=== PATIENT | female | born 1950 | race African-American/Black ===

== ENCOUNTER 2017-07-11 11:52 | Inpatient (IN) | payer MEDICAID ==
[~2017-07-11] VITALS: Ht 161.3 cm; Wt 98.9 kg
[~2017-07-11 11:52] MED LIST: CALC667C4 PO; CLON0.2T PO; ENAL5TAB PO; FERR-63 PO; METO50TA5 PO; WARF6TAB22 PO
[2017-07-11] MEDS ORDERED: AZTREONAM 2 GM in DEXT 5% WATER 100 ML IV STA ×2 (12:36→14:13)
[2017-07-11] MEDS ORDERED: VANCOMYCIN 1,500 MG in DEXT 5% WATER 250 ML IV STA ×2 (12:36→14:13)
[2017-07-11] MEDS ORDERED: METRONIDAZOLE 500 MG PREMIX 100 ML IV ONE (12:45)
[2017-07-11 13:07] LABS: BASOPHILS % 0.5 % (0.0-2.0); EOSINOPHILS % 0.3 % (0.0-5.0); LYMPHOCYTES % 9.9 % (20.0-50.0); MEAN CORPUSCULAR HEMOGLOBIN 23.1 pg (28.0-32.0); MEAN CORPUSCULAR VOLUME 71.8 fL (81.0-99.0); MEAN PLATELET VOLUME 7.7 fl (7.4-10.4); MONOCYTES % 10.3 % (2.0-8.0); PLATELET 317 x1000/uL (130-400); RED CELL DISTRIBUTION WIDTH 14.4 % (11.6-14.6)
[2017-07-11 13:14] LABS: INR 1.1; PROTHROMBIN TIME 11.4 sec (9.4-11.6)
[2017-07-11] MEDS ORDERED: MORPHINE SULFATE 4 MG/ML CPJ (NOT FOR IM USE) IV ONE (13:15)
[2017-07-11] MEDS ORDERED: ONDANSETRON HCL 4MG/2ML VIAL IV ONE (13:15)
[2017-07-11 13:17] LABS: CARBON DIOXIDE 36 mEq/L (21-32); CHLORIDE 94 mEq/L (98-107)
[2017-07-11 18:12] VITALS: BP 140/57
[2017-07-11] MEDS ORDERED: CLONIDINE 0.1MG TABLET PO PRN (18:45)
[2017-07-11 19:30] VITALS: BP 143/83
[2017-07-11 20:00] VITALS: BP 143/53
[2017-07-11] MEDS ORDERED: ONDANSETRON HCL 4MG/2ML VIAL IV PRN (20:00)
[2017-07-11] MEDS ORDERED: DEXTROSE 50% WATER 50ML SYRINGE IV PRN (20:00)
[2017-07-11] MEDS: METOPROLOL TARTRATE 25MG TABLET PO SCH (20:47)
[2017-07-11] MEDS: BLOOD SUGAR DIAGNOSTIC STRIP TEST SCH (20:48)
[2017-07-11] MEDS: HEPARIN 5000 UNITS/ML VIAL SUBCUT SCH (20:48)
[2017-07-11] MEDS: HYDROCODONE/ACETAMINOPHEN 5/325MG TABLET PO PRN (20:49)
[2017-07-11] MEDS: INSULIN LISPRO 100 UNITS/ML SUBCUT SCH (21:00)
[2017-07-11] MEDS: OMEPRAZOLE 20MG CAPSULE EXTENDED RELEASE PO SCH (22:48)
[2017-07-12] VITALS: BP 121/67
[2017-07-12 01:02] LABS: CLARITY URINE CLEAR (CLEAR); COLOR URINE YELLOW (YELLOW); GLUCOSE URINE NEGATIVE (NEGATIVE); KETONES URINE NEGATIVE (NEGATIVE); LEUKOCYTE ESTERASE URINE NEGATIVE (NEGATIVE); NITRITE URINE NEGATIVE (NEGATIVE); OCCULT BLOOD URINE NEGATIVE (NEGATIVE); PH URINE >=9.0 (4.5-8.0); PROTEIN URINE 2+ (NEGATIVE); SPECIFIC GRAVITY URINE 1.011 (1.005-1.030); UROBILINOGEN URINE 0.2 E.U./dL (0.2-1.0)
[2017-07-12 04:00] VITALS: BP 141/84
[2017-07-12] MEDS: BLOOD SUGAR DIAGNOSTIC STRIP TEST SCH ×4 (06:21→22:17)
[2017-07-12 08:00] VITALS: BP 131/62
[2017-07-12] MEDS: INSULIN LISPRO 100 UNITS/ML SUBCUT SCH ×4 (08:10→22:19)
[2017-07-12 08:30] LABS: BASOPHILS % 0.6 % (0.0-2.0); EOSINOPHILS % 0.9 % (0.0-5.0); HEMATOCRIT. 26.6 % (36.0-48.0); HEMOGLOBIN. 8.4 g/dL (12.0-16.0); LYMPHOCYTES % 12.1 % (20.0-50.0); MEAN CORPUSCULAR HEMOGLOBIN 22.9 pg (28.0-32.0); MEAN CORPUSCULAR VOLUME 72.6 fL (81.0-99.0); MEAN PLATELET VOLUME 7.7 fl (7.4-10.4); MONOCYTES % 11.1 % (2.0-8.0); NEUTROPHILS % 75.3 % (40.0-76.0); PLATELET 277 x1000/uL (130-400); RED BLOOD CELL COUNT 3.66 mill/uL (4.2-5.4); RED CELL DISTRIBUTION WIDTH 14.5 % (11.6-14.6)
[2017-07-12 08:58] LABS: TROPONIN I 0.05 ng/mL (0.00-0.04)
[2017-07-12] MEDS: OMEPRAZOLE 20MG CAPSULE EXTENDED RELEASE PO SCH (09:39)
[2017-07-12] MEDS: METOPROLOL TARTRATE 25MG TABLET PO SCH ×2 (09:39→16:23)
[2017-07-12] MEDS: HEPARIN 5000 UNITS/ML VIAL SUBCUT SCH ×2 (09:40→21:00)
[2017-07-12 12:00] VITALS: BP 112/55
[2017-07-12] MEDS: HYDROCODONE/ACETAMINOPHEN 5/325MG TABLET PO PRN (13:08)
[2017-07-12 16:00] VITALS: BP 108/43
[2017-07-12] MEDS: AZTREONAM 500 MG in DEXTROSE 5% WATER 50 ML IV SCH (16:23)
[2017-07-12 20:00] VITALS: BP 152/84
[2017-07-13] VITALS: BP 147/64
[2017-07-13 04:00] VITALS: BP 143/92
[2017-07-13] MEDS: BLOOD SUGAR DIAGNOSTIC STRIP TEST SCH ×4 (07:19→21:26)
[2017-07-13] MEDS: INSULIN LISPRO 100 UNITS/ML SUBCUT SCH ×4 (07:41→21:00)
[2017-07-13 08:00] VITALS: BP 140/92
[2017-07-13] MEDS: HEPARIN 5000 UNITS/ML VIAL SUBCUT SCH ×2 (09:15→21:26)
[2017-07-13] MEDS: AZTREONAM 500 MG in DEXTROSE 5% WATER 50 ML IV SCH (09:15)
[2017-07-13] MEDS: METOPROLOL TARTRATE 25MG TABLET PO SCH ×2 (09:15→16:19)
[2017-07-13] MEDS: FAMOTIDINE 20MG TABLET PO SCH (09:15)
[2017-07-13 12:00] VITALS: BP 143/59
[2017-07-13] MEDS: ENALAPRIL 5MG TABLET PO SCH ×2 (12:23→21:24)
[2017-07-13 15:58] LABS: BASOPHILS % 0.6 % (0.0-2.0); EOSINOPHILS % 1.6 % (0.0-5.0); HEMATOCRIT. 26.6 % (36.0-48.0); HEMOGLOBIN. 8.5 g/dL (12.0-16.0); LYMPHOCYTES % 9.3 % (20.0-50.0); MEAN CORPUSCULAR HEMOGLOBIN 22.9 pg (28.0-32.0); MEAN CORPUSCULAR VOLUME 71.6 fL (81.0-99.0); MEAN PLATELET VOLUME 7.9 fl (7.4-10.4); MONOCYTES % 7.9 % (2.0-8.0); NEUTROPHILS % 80.6 % (40.0-76.0); PLATELET 293 x1000/uL (130-400); RED BLOOD CELL COUNT 3.72 mill/uL (4.2-5.4); RED CELL DISTRIBUTION WIDTH 14.5 % (11.6-14.6)
[2017-07-13 16:00] VITALS: BP 115/51
[2017-07-13] MEDS: HYDROCODONE/ACETAMINOPHEN 5/325MG TABLET PO PRN (16:20)
[2017-07-13] MEDS ORDERED: VANCOMYCIN 1250MG in DEXTROSE 5% WATER 250ML IV NR (18:00)
[2017-07-13 20:00] VITALS: BP 185/75
[2017-07-14] VITALS (7 sets, daily range): BP systolic 114–168; BP diastolic 47–79
[2017-07-14] MEDS: BLOOD SUGAR DIAGNOSTIC STRIP TEST SCH ×4 (05:50→20:45)
[2017-07-14] MEDS: ACETAMINOPHEN 325MG TABLET PO PRN ×2 (05:50→20:07)
[2017-07-14 06:08] LABS: BASOPHILS % 0.2 % (0.0-2.0); EOSINOPHILS % 1.9 % (0.0-5.0); HEMATOCRIT. 25.8 % (36.0-48.0); HEMOGLOBIN. 8.2 g/dL (12.0-16.0); LYMPHOCYTES % 9.1 % (20.0-50.0); MEAN CORPUSCULAR HEMOGLOBIN 22.6 pg (28.0-32.0); MEAN CORPUSCULAR VOLUME 71.6 fL (81.0-99.0); MEAN PLATELET VOLUME 7.7 fl (7.4-10.4); MONOCYTES % 8.9 % (2.0-8.0); NEUTROPHILS % 79.9 % (40.0-76.0); PLATELET 300 x1000/uL (130-400); RED BLOOD CELL COUNT 3.61 mill/uL (4.2-5.4); RED CELL DISTRIBUTION WIDTH 14.1 % (11.6-14.6)
[2017-07-14] MEDS: INSULIN LISPRO 100 UNITS/ML SUBCUT SCH ×4 (07:24→20:45)
[2017-07-14] MEDS: METOPROLOL TARTRATE 25MG TABLET PO SCH ×2 (09:00→17:50)
[2017-07-14] MEDS: ENALAPRIL 5MG TABLET PO SCH ×2 (09:00→20:06)
[2017-07-14] MEDS: FAMOTIDINE 20MG TABLET PO SCH (09:59)
[2017-07-14] MEDS: HEPARIN 5000 UNITS/ML VIAL SUBCUT SCH ×2 (10:00→20:47)
[2017-07-14 11:25] LABS: HEPATITIS B SURFACE ANTIGEN NEGATIVE
[2017-07-14] MEDS ORDERED: HEPARIN SODIUM 1,000 UNIT/1ML VIAL IV NR (12:00)
[2017-07-15 00:03] VITALS: BP 119/61
[2017-07-15 04:00] VITALS: BP 127/64
[2017-07-15] MEDS: ACETAMINOPHEN 325MG TABLET PO PRN ×2 (05:34→20:33)
[2017-07-15] MEDS: BLOOD SUGAR DIAGNOSTIC STRIP TEST SCH ×4 (05:59→20:47)
[2017-07-15] MEDS: INSULIN LISPRO 100 UNITS/ML SUBCUT SCH ×4 (07:46→20:47)
[2017-07-15 08:00] VITALS: BP 106/48
[2017-07-15] MEDS: METOPROLOL TARTRATE 25MG TABLET PO SCH ×2 (09:00→20:33)
[2017-07-15] MEDS: ENALAPRIL 5MG TABLET PO SCH ×2 (09:00→20:32)
[2017-07-15] MEDS: FAMOTIDINE 20MG TABLET PO SCH (09:05)
[2017-07-15] MEDS: HEPARIN 5000 UNITS/ML VIAL SUBCUT SCH ×2 (09:08→20:32)
[2017-07-15] MEDS: HYDROCODONE/ACETAMINOPHEN 5/325MG TABLET PO PRN (09:17)
[2017-07-15] MEDS ORDERED: VANCOMYCIN 1250MG in DEXTROSE 5% WATER 250ML IV NR (12:00)
[2017-07-15 20:00] VITALS: BP 168/78
[2017-07-16] VITALS (9 sets, daily range): BP systolic 65–130; BP diastolic 32–57
[2017-07-16] MEDS: BLOOD SUGAR DIAGNOSTIC STRIP TEST SCH ×4 (06:09→21:05)
[2017-07-16 07:03] LABS: HEMOGLOBIN. 7.4 g/dL (12.0-16.0); MEAN CORPUSCULAR HEMOGLOBIN 23.1 pg (28.0-32.0); MEAN CORPUSCULAR VOLUME 71.7 fL (81.0-99.0); PLATELET 236 x1000/uL (130-400); RED BLOOD CELL COUNT 3.21 mill/uL (4.2-5.4); RED CELL DISTRIBUTION WIDTH 14.4 % (11.6-14.6)
[2017-07-16] MEDS: INSULIN LISPRO 100 UNITS/ML SUBCUT SCH ×4 (08:10→21:00)
[2017-07-16] MEDS: HEPARIN 5000 UNITS/ML VIAL SUBCUT SCH (08:58)
[2017-07-16] MEDS ORDERED: LEVOFLOXACIN 250MG TABLET PO SCH (09:00)
[2017-07-16] MEDS: METOPROLOL TARTRATE 25MG TABLET PO SCH ×2 (09:00→21:00)
[2017-07-16] MEDS: ENALAPRIL 5MG TABLET PO SCH ×2 (09:00→21:00)
[2017-07-16] MEDS: FAMOTIDINE 20MG TABLET PO SCH (09:12)
[2017-07-16] MEDS ORDERED: LIDOCAINE HCL 1% 20ML VIAL (Pyxis) INJ ONE (09:36)
[2017-07-16] MEDS ORDERED: SODIUM BICARBONATE 4% (2.4MEQ) 5ML VIAL IV ONE (09:36)
[2017-07-16] MEDS ORDERED: LIDOCAINE HCL/PF 2% 20MG/ML 5 ML/VIAL ONE (12:21)
[2017-07-16] MEDS ORDERED: BUPIVACAINE HCL/PF 0.5% (5MG/ML) 10ML ONE (12:21)
[2017-07-16] MEDS ORDERED: BACITRACIN 50,000 UNITS/VIAL ONE ×2 (12:21→12:45)
[2017-07-16] MEDS ORDERED: GENTAMICIN SULF 40MG/ML 2ML VIAL ONE (12:21)
[2017-07-16] MEDS ORDERED: VANCOMYCIN HCL 500 MG/VIAL ONE ×2 (12:56→13:07)
[2017-07-16 16:11] LABS: PLATELET ESTIMATE NORMAL
[2017-07-16 16:44] LABS: INR 1.1; PARTIAL THROMBOPLASTIN TIME 49.8 sec (23.4-31.0); PROTHROMBIN TIME 11.9 sec (9.4-11.6)
[2017-07-16] MEDS ORDERED: SODIUM CHLORIDE 0.9% 10ML VIAL ONE (16:57)
[2017-07-16] MEDS ORDERED: IOHEXOL-350 100 ML BOTTLE ONE (16:57)
[2017-07-16] MEDS ORDERED: VANCOMYCIN 1250MG in DEXTROSE 5% WATER 250ML IV SCH (18:00)
[2017-07-16] MEDS ORDERED: HEPARIN SODIUM 1,000 UNIT/1ML VIAL IV SCH (18:00)
[2017-07-16] MEDS ORDERED: HETASTARCH/NORMAL SALINE 500 ML PLAST..BAG IV PRN (20:30)
[2017-07-16] MEDS ORDERED: HETASTARCH/NORMAL SALINE 250 ML IV PRN (20:45)
[2017-07-17] VITALS: BP 101/55
[2017-07-17 04:00] VITALS: BP 100/50
[2017-07-17 07:31] LABS: HEMATOCRIT. 26.6 % (36.0-48.0); HEMOGLOBIN. 8.3 g/dL (12.0-16.0); MEAN CORPUSCULAR VOLUME 73.7 fL (81.0-99.0); MEAN PLATELET VOLUME 7.9 fl (7.4-10.4); PLATELET 187 x1000/uL (130-400); RED BLOOD CELL COUNT 3.61 mill/uL (4.2-5.4); RED CELL DISTRIBUTION WIDTH 15.6 % (11.6-14.6)
[2017-07-17] MEDS: BLOOD SUGAR DIAGNOSTIC STRIP TEST SCH ×4 (07:40→22:00)
[2017-07-17 08:00] VITALS: BP 115/45
[2017-07-17] MEDS: INSULIN LISPRO 100 UNITS/ML SUBCUT SCH ×4 (08:10→22:00)
[2017-07-17] MEDS: ENALAPRIL 5MG TABLET PO SCH ×2 (08:38→21:00)
[2017-07-17] MEDS: METOPROLOL TARTRATE 25MG TABLET PO SCH ×2 (08:39→21:00)
[2017-07-17] MEDS: FAMOTIDINE 20MG TABLET PO SCH (08:39)
[2017-07-17] MEDS: ACETAMINOPHEN 325MG TABLET PO PRN (08:39)
[2017-07-17 11:59] VITALS: BP 90/32
[2017-07-17 16:00] VITALS: BP 110/48
[2017-07-17] MEDS: HYDROCODONE/ACETAMINOPHEN 5/325MG TABLET PO PRN (17:25)
[2017-07-17 18:15] LABS: FERRITIN 1139 ng/mL (10-291)
[2017-07-17 18:25] LABS: VITAMIN B12 SERUM 562 pg/mL (211-911)
[2017-07-17 18:26] LABS: HEPATITIS B SURFACE ANTIGEN NEGATIVE
[2017-07-17 18:54] LABS: HEPATITIS B CORE AB IGM NEGATIVE
[2017-07-17 18:56] LABS: HEPATITIS A AB IGM NEGATIVE (NEGATIVE)
[2017-07-17 20:00] VITALS: BP 103/58
[2017-07-17 20:09] LABS: PLATELET ESTIMATE NORMAL
[2017-07-18] VITALS (7 sets, daily range): BP systolic 110–145; BP diastolic 51–86
[2017-07-18] MEDS: HYDROCODONE/ACETAMINOPHEN 5/325MG TABLET PO PRN ×2 (03:27→20:40)
[2017-07-18] MEDS: BLOOD SUGAR DIAGNOSTIC STRIP TEST SCH ×4 (07:16→20:41)
[2017-07-18] MEDS: INSULIN LISPRO 100 UNITS/ML SUBCUT SCH ×4 (07:49→20:41)
[2017-07-18] MEDS: ENALAPRIL 5MG TABLET PO SCH ×2 (09:00→20:41)
[2017-07-18] MEDS: METOPROLOL TARTRATE 25MG TABLET PO SCH ×2 (09:00→20:39)
[2017-07-18] MEDS: FAMOTIDINE 20MG TABLET PO SCH (09:00)
[2017-07-18 10:35] LABS: BASOPHILS % 0.2 % (0.0-2.0); EOSINOPHILS % 4.2 % (0.0-5.0); HEMATOCRIT. 22.6 % (36.0-48.0); HEMOGLOBIN. 7.2 g/dL (12.0-16.0); LYMPHOCYTES % 9.4 % (20.0-50.0); MEAN CORPUSCULAR HEMOGLOBIN 23.5 pg (28.0-32.0); MEAN CORPUSCULAR VOLUME 73.2 fL (81.0-99.0); MEAN PLATELET VOLUME 7.5 fl (7.4-10.4); NEUTROPHILS % 78.2 % (40.0-76.0); PLATELET 187 x1000/uL (130-400); RED BLOOD CELL COUNT 3.08 mill/uL (4.2-5.4)
[2017-07-18] MEDS: CEFTRIAXONE 2 G in DEXTROSE 5% WATER 50 ML IV SCH (14:14)
[2017-07-18] MEDS ORDERED: VANCOMYCIN 1 G PREMIX 200 ML IV NR (18:00)
[2017-07-19] MEDS: FAMOTIDINE 20MG TABLET PO SCH (02:35)
[2017-07-19] MEDS: BLOOD SUGAR DIAGNOSTIC STRIP TEST SCH ×4 (06:20→21:17)
[2017-07-19 08:00] VITALS: BP 92/47
[2017-07-19] MEDS: INSULIN LISPRO 100 UNITS/ML SUBCUT SCH ×4 (08:10→21:00)
[2017-07-19] MEDS: ENALAPRIL 5MG TABLET PO SCH ×2 (09:00→21:00)
[2017-07-19] MEDS: METOPROLOL TARTRATE 25MG TABLET PO SCH ×2 (09:00→21:00)
[2017-07-19 12:00] VITALS: BP 94/45
[2017-07-19] MEDS: CEFTRIAXONE 2 G in DEXTROSE 5% WATER 50 ML IV SCH (13:37)
[2017-07-19] MEDS: HYDROCODONE/ACETAMINOPHEN 5/325MG TABLET PO PRN (15:50)
[2017-07-19 16:00] VITALS: BP 124/55
[2017-07-19 17:36] LABS: HEMATOCRIT. 30.4 % (36.0-48.0); HEMOGLOBIN. 9.7 g/dL (12.0-16.0); MEAN CORPUSCULAR HEMOGLOBIN 23.7 pg (28.0-32.0); MEAN CORPUSCULAR VOLUME 74.8 fL (81.0-99.0); MEAN PLATELET VOLUME 7.6 fl (7.4-10.4); PLATELET 210 x1000/uL (130-400); RED BLOOD CELL COUNT 4.07 mill/uL (4.2-5.4); RED CELL DISTRIBUTION WIDTH 17.2 % (11.6-14.6)
[2017-07-19 19:49] LABS: PLATELET ESTIMATE NORMAL
[2017-07-19 20:00] VITALS: BP 109/50
[2017-07-19 21:47] VITALS: BP 109/50
== END 2017-07-19 22:05 | disposition home or self-care (01) | DRG 710 ==
LOC: ER 11:53 → 7WST 15:01 → EDBEDREQSVC 15:15 → EDBEDREQ 15:15 → ENRESERV 15:39
PROVIDERS: ADMIT Internal Medicine; ATTEND Internal Medicine
PROC: 02HV33Z Insertion of Infusion Device into Superior Vena Cava, Percutaneous Approach (ICD-10-PCS; 2017-07-16)
PROC: B548ZZA Ultrasonography of Superior Vena Cava, Guidance (ICD-10-PCS; 2017-07-16)
PROC: 30233N1 Transfusion of Nonautologous Red Blood Cells into Peripheral Vein, Percutaneous Approach (ICD-10-PCS; 2017-07-16)
PROC: B5181ZA Fluoroscopy of Superior Vena Cava using Low Osmolar Contrast, Guidance (ICD-10-PCS; 2017-07-16)
PROC: 0QBM0ZZ Excision of Left Tarsal, Open Approach (ICD-10-PCS; principal; 2017-07-19)
PROC: 0HDNXZZ Extraction of Left Foot Skin, External Approach (ICD-10-PCS; 2017-07-19)
DX: A41.9 Sepsis, unspecified organism (principal); E43 Unspecified severe protein-calorie malnutrition; N17.9 Acute kidney failure, unspecified; L89.154 Pressure ulcer of sacral region, stage 4; L89.304 Pressure ulcer of unspecified buttock, stage 4; L89.894 Pressure ulcer of other site, stage 4; E11.52 Type 2 diabetes mellitus with diabetic peripheral angiopathy with gangrene; N18.6 End stage renal disease; E11.22 Type 2 diabetes mellitus with diabetic chronic kidney disease; I13.11 Hypertensive heart and chronic kidney disease without heart failure, with stage 5 chronic kidney disease, or end stage renal disease; E11.621 Type 2 diabetes mellitus with foot ulcer; E11.319 Type 2 diabetes mellitus with unspecified diabetic retinopathy without macular edema; E11.628 Type 2 diabetes mellitus with other skin complications; E66.9 Obesity, unspecified; D64.9 Anemia, unspecified; J44.9 Chronic obstructive pulmonary disease, unspecified; L97.429 Non-pressure chronic ulcer of left heel and midfoot with unspecified severity; L97.519 Non-pressure chronic ulcer of other part of right foot with unspecified severity; R65.20 Severe sepsis without septic shock; E11.622 Type 2 diabetes mellitus with other skin ulcer; E11.69 Type 2 diabetes mellitus with other specified complication; K57.90 Diverticulosis of intestine, part unspecified, without perforation or abscess without bleeding; L89.629 Pressure ulcer of left heel, unspecified stage; M85.80 Other specified disorders of bone density and structure, unspecified site; N39.0 Urinary tract infection, site not specified; M86.8X7 Other osteomyelitis, ankle and foot; Z59.0 Homelessness; Z99.2 Dependence on renal dialysis; Z88.0 Allergy status to penicillin; Z79.4 Long term (current) use of insulin; Z79.2 Long term (current) use of antibiotics; Z87.891 Personal history of nicotine dependence; Z89.511 Acquired absence of right leg below knee; Z89.611 Acquired absence of right leg above knee; Z79.899 Other long term (current) drug therapy; Z68.38 Body mass index [BMI] 38.0-38.9, adult
CPT/HCPCS: 36415; 36569; 71010; 73650; 73700; 73721; 75635; 76937; 77001; 80048; 80053; 80202; 81001; 82607; 82728; 82962; 83540; 83550; 83605; 83615; 84100; 84443; 84484; 85025; 85044; 85610; 85651; 85730; 86705; 86706; 86709; 86803; 86850; 86900; 86920; 87040; 87070; 87075; 87077; 87086; 87186; 87205; 87340; 88304; 93005; 93306; 93971; 96365; 96366; 96368; 96375; 97022; 97162; 99291; A4216; A4565; A6261; C1725; J0696; J1580; J1644; J2270; J2405; J3370; J3490; J7030; J7040; J7050; J7060; P9016; Q9967

== ENCOUNTER 2018-09-20 15:39 | Inpatient (IN) | payer MEDICAID ==
[~2018-09-20] VITALS: Ht 160 cm; Wt 83.0 kg
[~2018-09-20 15:39] MED LIST changes: +METO-539 PO; -METO50TA5 PO
[2018-09-20] MEDS ORDERED: ALBUTEROL (0.083%) 2.5MG/3ML NEB HHN STA (20:16)
[2018-09-20] MEDS ORDERED: METHYLPREDNISOLONE SOD SUCC 125 MG/2 ML VIAL IV STA (20:16)
[2018-09-20 20:59] LABS: BASOPHILS % 0.9 % (0.0-2.0); EOSINOPHILS % 3.8 % (0.0-5.0); HEMATOCRIT. 23.9 % (36.0-48.0); HEMOGLOBIN. 7.7 g/dL (12.0-16.0); LYMPHOCYTES % 42.6 % (20.0-50.0); MEAN CORPUSCULAR HEMOGLOBIN 23.3 pg (28.0-32.0); MEAN CORPUSCULAR VOLUME 72.5 fL (81.0-99.0); MEAN PLATELET VOLUME 7.7 fl (7.4-10.4); NEUTROPHILS % 41.7 % (40.0-76.0); PLATELET 203 x1000/uL (130-400); RED CELL DISTRIBUTION WIDTH 19.7 % (11.6-14.6)
[2018-09-20 21:21] LABS: CHLORIDE 101 mEq/L (98-107)
[2018-09-21 09:00] VITALS: BP 187/74
[2018-09-21] MEDS ORDERED: CLONIDINE 0.1MG TABLET PO PRN (09:15)
[2018-09-21] MEDS ORDERED: HYDROCODONE/ACETAMINOPHEN 10/325MG TABLET PO PRN (09:15)
[2018-09-21] MEDS ORDERED: ACETAMINOPHEN 650MG/20.3ML UDC GT PRN (09:15)
[2018-09-21] MEDS ORDERED: GUAIFENESIN 200MG/10ML SUGAR FREE UDC PO PRN (09:15)
[2018-09-21] MEDS ORDERED: DIPHENHYDRAMINE 50MG/ML VIAL IV PRN (09:15)
[2018-09-21] MEDS ORDERED: DEXTROSE 50% WATER 50ML SYRINGE IV PRN (09:15)
[2018-09-21] MEDS ORDERED: DOCUSATE SODIUM 100MG CAPSULE PO PRN (09:15)
[2018-09-21] MEDS ORDERED: ONDANSETRON HCL 4MG/2ML INJ IV PRN (09:15)
[2018-09-21] MEDS ORDERED: IPRATROPIUM/ALBUTEROL 0.5-3(2.5)MG/3ML NEB INH PRN (09:15)
[2018-09-21] MEDS ORDERED: ACETAMINOPHEN 650MG SUPP PR PRN (09:15)
[2018-09-21] MEDS ORDERED: ENOXAPARIN 40MG/0.4ML SYR SUBCUT SCH (09:30)
[2018-09-21 12:00] VITALS: BP 187/71
[2018-09-21] MEDS: BLOOD SUGAR DIAGNOSTIC STRIP TEST SCH ×3 (12:40→21:00)
[2018-09-21 13:09] LABS: BASOPHILS % 0.2 % (0.0-2.0); HEMATOCRIT. 25.8 % (36.0-48.0); HEMOGLOBIN. 8.2 g/dL (12.0-16.0); LYMPHOCYTES % 30.6 % (20.0-50.0); MEAN CORPUSCULAR HEMOGLOBIN 23.2 pg (28.0-32.0); MEAN CORPUSCULAR VOLUME 72.7 fL (81.0-99.0); MEAN PLATELET VOLUME 8.1 fl (7.4-10.4); MONOCYTES % 5.3 % (2.0-8.0); NEUTROPHILS % 63.9 % (40.0-76.0); PLATELET 218 x1000/uL (130-400); RED BLOOD CELL COUNT 3.54 mill/uL (4.2-5.4); RED CELL DISTRIBUTION WIDTH 20.1 % (11.6-14.6)
[2018-09-21] MEDS: INSULIN LISPRO 100 UNITS/ML SUBCUT SCH ×3 (13:35→22:12)
[2018-09-21] MEDS: HYDROCODONE/ACETAMINOPHEN 5/325MG TABLET PO PRN (13:36)
[2018-09-21] MEDS: SODIUM CHLORIDE 0.9% INJ 3ML FLUSH IVF SCH (13:39)
[2018-09-21 14:07] LABS: CHLORIDE 100 mEq/L (98-107)
[2018-09-21 16:00] VITALS: BP 158/53
[2018-09-21 18:44] LABS: CREATINE KINASE 38 IU/L (26-192)
[2018-09-21 18:45] LABS: CREATINE KINASE MB FRACTION < 1.0 ng/mL (0.5-3.6)
[2018-09-21 20:00] VITALS: BP 142/59
[2018-09-21 20:50] LABS: CLARITY URINE CLOUDY (CLEAR); COLOR URINE YELLOW (YELLOW); KETONES URINE NEGATIVE (NEGATIVE); LEUKOCYTE ESTERASE URINE 2+ (NEGATIVE); NITRITE URINE NEGATIVE (NEGATIVE); OCCULT BLOOD URINE 1+ (NEGATIVE); PH URINE >=9.0 (4.5-8.0); PROTEIN URINE 3+ (NEGATIVE); UROBILINOGEN URINE 0.2 E.U./dL (0.2-1.0)
[2018-09-21 21:01] LABS: *AMPHETAMINES SCREEN URINE NEGATIVE (NEGATIVE); *BARBITURATES SCREEN URINE NEGATIVE (NEGATIVE); *BENZODIAZEPINES SCREEN URINE NEGATIVE (NEGATIVE); *COCAINE SCREEN URINE NEGATIVE (NEGATIVE)
[2018-09-21 21:02] LABS: CANNABINOID URINE SCREEN NEGATIVE (NEGATIVE); METHADONE URINE SCREEN NEGATIVE (NEGATIVE); OPIATES URINE SCREEN NEGATIVE (NEGATIVE); PHENCYCLIDINE URINE SCREEN NEGATIVE (NEGATIVE)
[2018-09-22] VITALS (8 sets, daily range): BP systolic 118–146; BP diastolic 43–68
[2018-09-22] MEDS: HYDROCODONE/ACETAMINOPHEN 5/325MG TABLET PO PRN (00:41)
[2018-09-22] MEDS: SODIUM CHLORIDE 0.9% INJ 3ML FLUSH IVF SCH (00:44)
[2018-09-22] MEDS: BLOOD SUGAR DIAGNOSTIC STRIP TEST SCH ×4 (07:40→21:00)
[2018-09-22] MEDS: INSULIN LISPRO 100 UNITS/ML SUBCUT SCH ×4 (08:10→21:00)
[2018-09-22 10:01] LABS: BASOPHILS % 0.2 % (0.0-2.0); EOSINOPHILS % 1.9 % (0.0-5.0); LYMPHOCYTES % 39.2 % (20.0-50.0); MEAN CORPUSCULAR HEMOGLOBIN 23.1 pg (28.0-32.0); MEAN CORPUSCULAR VOLUME 72.6 fL (81.0-99.0); MEAN PLATELET VOLUME 7.8 fl (7.4-10.4); MONOCYTES % 8.1 % (2.0-8.0); NEUTROPHILS % 50.6 % (40.0-76.0); PLATELET 195 x1000/uL (130-400); RED BLOOD CELL COUNT 2.89 mill/uL (4.2-5.4); RED CELL DISTRIBUTION WIDTH 20.1 % (11.6-14.6)
[2018-09-22 10:06] LABS: HEMOGLOBIN. 6.7 g/dL (12.0-16.0)
[2018-09-22 10:42] LABS: CHLORIDE 100 mEq/L (98-107)
[2018-09-22 11:09] LABS: CREATINE KINASE 30 IU/L (26-192); LDL CHOLESTEROL 50 mg/dL (5-100)
[2018-09-22 11:10] LABS: HDL CHOLESTEROL 45 mg/dL (40-59)
[2018-09-22 11:14] LABS: CREATINE KINASE MB FRACTION < 1.0 ng/mL (0.5-3.6)
[2018-09-22] MEDS: ASPIRIN 81MG EC TABLET PO SCH (14:03)
[2018-09-22] MEDS: ATORVASTATIN CALCIUM 20MG TABLET PO SCH (21:17)
[2018-09-23] VITALS (7 sets, daily range): BP systolic 116–141; BP diastolic 44–54
[2018-09-23] MEDS: SODIUM CHLORIDE 0.9% INJ 3ML FLUSH IVF SCH ×4 (06:51→20:42)
[2018-09-23] MEDS: BLOOD SUGAR DIAGNOSTIC STRIP TEST SCH ×4 (06:52→20:42)
[2018-09-23] MEDS: INSULIN LISPRO 100 UNITS/ML SUBCUT SCH ×4 (08:10→20:45)
[2018-09-23] MEDS: ASPIRIN 81MG EC TABLET PO SCH (08:44)
[2018-09-23] MEDS ORDERED: MAGNESIUM HYDROXIDE 400MG/5ML 30ML UDC PO NR (15:00)
[2018-09-23] MEDS: ATORVASTATIN CALCIUM 20MG TABLET PO SCH (20:41)
[2018-09-23 22:53] LABS: BASOPHILS % 0.5 % (0.0-2.0); EOSINOPHILS % 2.9 % (0.0-5.0); HEMATOCRIT. 26.5 % (36.0-48.0); HEMOGLOBIN. 8.4 g/dL (12.0-16.0); LYMPHOCYTES % 33.7 % (20.0-50.0); MEAN CORPUSCULAR HEMOGLOBIN 23.7 pg (28.0-32.0); MEAN CORPUSCULAR VOLUME 74.3 fL (81.0-99.0); MEAN PLATELET VOLUME 7.7 fl (7.4-10.4); MONOCYTES % 9.8 % (2.0-8.0); NEUTROPHILS % 53.1 % (40.0-76.0); PLATELET 214 x1000/uL (130-400); RED BLOOD CELL COUNT 3.56 mill/uL (4.2-5.4); RED CELL DISTRIBUTION WIDTH 20.1 % (11.6-14.6)
[2018-09-23 23:00] LABS: CHLORIDE 104 mEq/L (98-107)
[2018-09-23] MEDS: HYDROCODONE/ACETAMINOPHEN 5/325MG TABLET PO PRN (23:30)
[2018-09-24 04:00] VITALS: BP 165/80
[2018-09-24] MEDS: SODIUM CHLORIDE 0.9% INJ 3ML FLUSH IVF SCH ×3 (05:20→21:06)
[2018-09-24] MEDS: BLOOD SUGAR DIAGNOSTIC STRIP TEST SCH ×4 (07:40→21:03)
[2018-09-24 08:00] VITALS: BP 169/83
[2018-09-24] MEDS: INSULIN LISPRO 100 UNITS/ML SUBCUT SCH ×4 (08:10→21:00)
[2018-09-24] MEDS ORDERED: ATOR20TA PO (10:40)
[2018-09-24] MEDS ORDERED: AMLO2.5T45 PO (10:40)
[2018-09-24] MEDS ORDERED: ASPI-1158 PO (10:40)
[2018-09-24 11:49] LABS: BASOPHILS % 0.5 % (0.0-2.0); HEMATOCRIT. 24.6 % (36.0-48.0); HEMOGLOBIN. 7.9 g/dL (12.0-16.0); LYMPHOCYTES % 38.5 % (20.0-50.0); MEAN CORPUSCULAR HEMOGLOBIN 23.9 pg (28.0-32.0); MEAN CORPUSCULAR VOLUME 74.1 fL (81.0-99.0); MEAN PLATELET VOLUME 8.6 fl (7.4-10.4); PLATELET 198 x1000/uL (130-400); RED BLOOD CELL COUNT 3.32 mill/uL (4.2-5.4); RED CELL DISTRIBUTION WIDTH 20.4 % (11.6-14.6)
[2018-09-24 12:00] VITALS: BP 111/63
[2018-09-24] MEDS: ASPIRIN 81MG EC TABLET PO SCH (12:19)
[2018-09-24] MEDS: ACETAMINOPHEN 325MG TABLET PO PRN (12:20)
[2018-09-24 16:00] VITALS: BP 138/53
[2018-09-24 20:00] VITALS: BP 125/58
[2018-09-24] MEDS: MAGNESIUM HYDROXIDE 400MG/5ML 30ML UDC PO PRN (20:59)
[2018-09-24] MEDS: ATORVASTATIN CALCIUM 20MG TABLET PO SCH (21:03)
[2018-09-24] MEDS: AMLODIPINE 2.5MG TABLET PO SCH (21:03)
[2018-09-25] VITALS: BP 130/51
[2018-09-25 00:21] LABS: HEMATOCRIT 26.6 % (36.0-48.0); HEMOGLOBIN 8.5 g/dL (12.0-16.0)
[2018-09-25 00:27] LABS: PROTHROMBIN TIME 10.3 sec (9.1-11.1)
[2018-09-25 04:00] VITALS: BP 140/62
[2018-09-25] MEDS: INSULIN LISPRO 100 UNITS/ML SUBCUT SCH ×4 (06:26→21:00)
[2018-09-25] MEDS: SODIUM CHLORIDE 0.9% INJ 3ML FLUSH IVF SCH ×3 (06:26→21:25)
[2018-09-25] MEDS: BLOOD SUGAR DIAGNOSTIC STRIP TEST SCH ×4 (06:26→21:26)
[2018-09-25 08:00] VITALS: BP 170/72
[2018-09-25] MEDS: ASPIRIN 81MG EC TABLET PO SCH (08:11)
[2018-09-25] MEDS: AMLODIPINE 2.5MG TABLET PO SCH ×2 (08:11→21:26)
[2018-09-25 12:00] VITALS: BP 128/56
[2018-09-25 16:00] VITALS: BP 135/61
[2018-09-25 18:04] LABS: BASOPHILS % 0.4 % (0.0-2.0); HEMATOCRIT. 25.8 % (36.0-48.0); HEMOGLOBIN. 8.4 g/dL (12.0-16.0); LYMPHOCYTES % 34.7 % (20.0-50.0); MEAN CORPUSCULAR HEMOGLOBIN 24.3 pg (28.0-32.0); MEAN CORPUSCULAR VOLUME 74.5 fL (81.0-99.0); MEAN PLATELET VOLUME 8.5 fl (7.4-10.4); MONOCYTES % 10.2 % (2.0-8.0); NEUTROPHILS % 50.7 % (40.0-76.0); PLATELET 194 x1000/uL (130-400); RED BLOOD CELL COUNT 3.46 mill/uL (4.2-5.4); RED CELL DISTRIBUTION WIDTH 20.5 % (11.6-14.6)
[2018-09-25 20:00] VITALS: BP 145/64
[2018-09-25] MEDS: ATORVASTATIN CALCIUM 20MG TABLET PO SCH (21:25)
[2018-09-26] VITALS: BP 148/47
[2018-09-26] MEDS: HYDROCODONE/ACETAMINOPHEN 5/325MG TABLET PO PRN (05:28)
[2018-09-26] MEDS: MAGNESIUM HYDROXIDE 400MG/5ML 30ML UDC PO PRN (05:28)
[2018-09-26] MEDS: SODIUM CHLORIDE 0.9% INJ 3ML FLUSH IVF SCH ×3 (05:35→21:58)
[2018-09-26] MEDS: INSULIN LISPRO 100 UNITS/ML SUBCUT SCH ×4 (05:39→21:00)
[2018-09-26] MEDS: BLOOD SUGAR DIAGNOSTIC STRIP TEST SCH ×4 (05:39→21:00)
[2018-09-26 08:00] VITALS: BP 154/59
[2018-09-26] MEDS: AMLODIPINE 2.5MG TABLET PO SCH ×2 (09:08→21:00)
[2018-09-26] MEDS: ASPIRIN 81MG EC TABLET PO SCH (09:08)
[2018-09-26 12:00] VITALS: BP 149/61
[2018-09-26 16:00] VITALS: BP 129/66
[2018-09-26 20:00] VITALS: BP 167/64
[2018-09-26] MEDS: ATORVASTATIN CALCIUM 20MG TABLET PO SCH (21:00)
[2018-09-26] MEDS ORDERED: HEPARIN SODIUM 1,000 UNIT/1ML VIAL IV NR (23:22)
[2018-09-26 23:51] LABS: BASOPHILS % 0.6 % (0.0-2.0); EOSINOPHILS % 4.4 % (0.0-5.0); HEMATOCRIT. 30.5 % (36.0-48.0); HEMOGLOBIN. 9.7 g/dL (12.0-16.0); LYMPHOCYTES % 34.5 % (20.0-50.0); MEAN CORPUSCULAR HEMOGLOBIN 23.6 pg (28.0-32.0); MEAN CORPUSCULAR VOLUME 74.5 fL (81.0-99.0); MEAN PLATELET VOLUME 8.2 fl (7.4-10.4); NEUTROPHILS % 52.5 % (40.0-76.0); PLATELET 181 x1000/uL (130-400); RED BLOOD CELL COUNT 4.09 mill/uL (4.2-5.4); RED CELL DISTRIBUTION WIDTH 20.5 % (11.6-14.6)
[2018-09-27] VITALS: BP 119/48
[2018-09-27] MEDS ORDERED: HYDROCODONE/ACETAMINOPHEN 5/325MG TABLET PO PRN (01:45)
[2018-09-27] MEDS ORDERED: HYDROCODONE/ACETAMINOPHEN 10/325MG TABLET PO PRN (01:45)
[2018-09-27] MEDS: SODIUM CHLORIDE 0.9% INJ 3ML FLUSH IVF SCH ×3 (06:00→21:14)
[2018-09-27] MEDS: BLOOD SUGAR DIAGNOSTIC STRIP TEST SCH ×4 (06:41→21:12)
[2018-09-27 08:00] VITALS: BP 103/49
[2018-09-27] MEDS: INSULIN LISPRO 100 UNITS/ML SUBCUT SCH ×4 (08:10→21:00)
[2018-09-27] MEDS: AMLODIPINE 2.5MG TABLET PO SCH ×2 (09:00→21:13)
[2018-09-27] MEDS: ASPIRIN 81MG EC TABLET PO SCH (09:55)
[2018-09-27 09:56] LABS: BASOPHILS % 0.6 % (0.0-2.0); EOSINOPHILS % 4.1 % (0.0-5.0); HEMATOCRIT. 26.4 % (36.0-48.0); HEMOGLOBIN. 8.4 g/dL (12.0-16.0); MEAN CORPUSCULAR HEMOGLOBIN 23.7 pg (28.0-32.0); MEAN CORPUSCULAR VOLUME 74.6 fL (81.0-99.0); MEAN PLATELET VOLUME 7.7 fl (7.4-10.4); MONOCYTES % 9.9 % (2.0-8.0); NEUTROPHILS % 50.4 % (40.0-76.0); PLATELET 194 x1000/uL (130-400); RED BLOOD CELL COUNT 3.54 mill/uL (4.2-5.4); RED CELL DISTRIBUTION WIDTH 20.7 % (11.6-14.6)
[2018-09-27 10:25] LABS: CHLORIDE 106 mEq/L (98-107)
[2018-09-27 12:00] VITALS: BP 185/64
[2018-09-27 16:00] VITALS: BP 120/42
[2018-09-27] MEDS: ACETAMINOPHEN 325MG TABLET PO PRN (21:13)
[2018-09-27] MEDS: ATORVASTATIN CALCIUM 20MG TABLET PO SCH (21:13)
[2018-09-28] VITALS: BP 135/52
[2018-09-28 04:00] VITALS: BP 129/61
[2018-09-28] MEDS: SODIUM CHLORIDE 0.9% INJ 3ML FLUSH IVF SCH ×3 (05:43→22:00)
[2018-09-28] MEDS: BLOOD SUGAR DIAGNOSTIC STRIP TEST SCH ×4 (06:46→21:00)
[2018-09-28 08:00] VITALS: BP 124/67
[2018-09-28] MEDS: INSULIN LISPRO 100 UNITS/ML SUBCUT SCH ×4 (08:10→21:00)
[2018-09-28] MEDS: AMLODIPINE 2.5MG TABLET PO SCH ×2 (09:00→21:50)
[2018-09-28] MEDS: ASPIRIN 81MG EC TABLET PO SCH (09:00)
[2018-09-28 12:00] VITALS: BP 131/48
[2018-09-28 16:00] VITALS: BP 173/64
[2018-09-28 16:43] LABS: BASOPHILS % 0.4 % (0.0-2.0); EOSINOPHILS % 5.3 % (0.0-5.0); HEMATOCRIT. 26.2 % (36.0-48.0); HEMOGLOBIN. 8.3 g/dL (12.0-16.0); LYMPHOCYTES % 37.2 % (20.0-50.0); MEAN CORPUSCULAR HEMOGLOBIN 23.6 pg (28.0-32.0); MEAN CORPUSCULAR VOLUME 74.2 fL (81.0-99.0); MEAN PLATELET VOLUME 8.1 fl (7.4-10.4); MONOCYTES % 10.8 % (2.0-8.0); NEUTROPHILS % 46.3 % (40.0-76.0); PLATELET 214 x1000/uL (130-400); RED BLOOD CELL COUNT 3.53 mill/uL (4.2-5.4); RED CELL DISTRIBUTION WIDTH 20.8 % (11.6-14.6)
[2018-09-28 20:00] VITALS: BP 135/53
[2018-09-28] MEDS: ATORVASTATIN CALCIUM 20MG TABLET PO SCH (21:50)
[2018-09-29] VITALS: BP 125/48
[2018-09-29] MEDS: MAGNESIUM HYDROXIDE 400MG/5ML 30ML UDC PO PRN (02:23)
[2018-09-29] MEDS: SODIUM CHLORIDE 0.9% INJ 3ML FLUSH IVF SCH ×3 (05:53→21:25)
[2018-09-29] MEDS: BLOOD SUGAR DIAGNOSTIC STRIP TEST SCH ×4 (06:27→21:25)
[2018-09-29 08:00] VITALS: BP 129/79
[2018-09-29] MEDS: INSULIN LISPRO 100 UNITS/ML SUBCUT SCH ×4 (08:10→21:26)
[2018-09-29] MEDS: ASPIRIN 81MG EC TABLET PO SCH (09:22)
[2018-09-29] MEDS: AMLODIPINE 2.5MG TABLET PO SCH ×2 (09:22→21:25)
[2018-09-29 12:00] VITALS: BP 141/78
[2018-09-29 16:00] VITALS: BP 145/77
[2018-09-29 20:00] VITALS: BP 148/57
[2018-09-29] MEDS ORDERED: EPOETIN ALFA 10000UNITS/ML VIAL SUBCUT SCH (21:00)
[2018-09-29] MEDS: ATORVASTATIN CALCIUM 20MG TABLET PO SCH (21:25)
[2018-09-30 04:00] VITALS: BP 117/51
[2018-09-30] MEDS: SODIUM CHLORIDE 0.9% INJ 3ML FLUSH IVF SCH ×3 (06:00→22:00)
[2018-09-30] MEDS: BLOOD SUGAR DIAGNOSTIC STRIP TEST SCH ×4 (06:44→21:40)
[2018-09-30 08:00] VITALS: BP 117/75
[2018-09-30] MEDS: INSULIN LISPRO 100 UNITS/ML SUBCUT SCH ×4 (08:10→21:00)
[2018-09-30] MEDS: ASPIRIN 81MG EC TABLET PO SCH (08:40)
[2018-09-30] MEDS: AMLODIPINE 2.5MG TABLET PO SCH ×2 (08:41→22:10)
[2018-09-30 12:00] VITALS: BP 99/37
[2018-09-30 15:43] LABS: BASOPHILS % 0.8 % (0.0-2.0); EOSINOPHILS % 3.3 % (0.0-5.0); HEMATOCRIT. 25.3 % (36.0-48.0); HEMOGLOBIN. 8.2 g/dL (12.0-16.0); LYMPHOCYTES % 33.9 % (20.0-50.0); MEAN CORPUSCULAR VOLUME 74.4 fL (81.0-99.0); MEAN PLATELET VOLUME 8.5 fl (7.4-10.4); MONOCYTES % 9.9 % (2.0-8.0); NEUTROPHILS % 52.1 % (40.0-76.0); PLATELET 195 x1000/uL (130-400); RED BLOOD CELL COUNT 3.41 mill/uL (4.2-5.4); RED CELL DISTRIBUTION WIDTH 20.9 % (11.6-14.6)
[2018-09-30 16:00] VITALS: BP 140/80
[2018-09-30 20:00] VITALS: BP 121/54
[2018-09-30] MEDS: ATORVASTATIN CALCIUM 20MG TABLET PO SCH (22:10)
[2018-10-01] VITALS: BP 98/34
[2018-10-01] MEDS: BLOOD SUGAR DIAGNOSTIC STRIP TEST SCH (05:39)
[2018-10-01] MEDS: SODIUM CHLORIDE 0.9% INJ 3ML FLUSH IVF SCH (05:39)
[2018-10-01 08:00] VITALS: BP 118/59
[2018-10-01] MEDS: INSULIN LISPRO 100 UNITS/ML SUBCUT SCH (08:10)
[2018-10-01] MEDS: ASPIRIN 81MG EC TABLET PO SCH (09:56)
[2018-10-01] MEDS: AMLODIPINE 2.5MG TABLET PO SCH (09:56)
[2018-10-01 11:22] VITALS: BP 118/59
[2018-10-01 12:00] VITALS: BP 129/55
[2018-10-16] MEDS ORDERED: ENAL5TAB PO (15:27)
[2018-10-16] MEDS ORDERED: METO-539 PO (15:27)
== END 2018-10-01 15:17 | DRG 194 ==
LOC: ER 15:39 → 7WST 22:09 → EDBEDREQTM 22:13 → EDBEDREQ 22:13 → CANRESERV 09-21 00:57 → ENRESERV 09-21 00:57 → EDBEDREQ 09-21 05:09 → EDBEDREQTM 09-21 05:09 → EDBEDREQDT 09-21 05:09 → ENRESERV 09-21 07:11
PROVIDERS: ADMIT Family Medicine; ATTEND Family Medicine
PROC: 30233N1 Transfusion of Nonautologous Red Blood Cells into Peripheral Vein, Percutaneous Approach (ICD-10-PCS; principal; 2018-09-22)
PROC: 5A1D70Z Performance of Urinary Filtration, Intermittent, Less than 6 Hours Per Day (ICD-10-PCS; 2018-09-22)
PROC: 5A1D70Z Performance of Urinary Filtration, Intermittent, Less than 6 Hours Per Day (ICD-10-PCS; 2018-09-24)
PROC: 5A1D70Z Performance of Urinary Filtration, Intermittent, Less than 6 Hours Per Day (ICD-10-PCS; 2018-09-26)
PROC: 5A1D70Z Performance of Urinary Filtration, Intermittent, Less than 6 Hours Per Day (ICD-10-PCS; 2018-09-28)
DX: I13.2 Hypertensive heart and chronic kidney disease with heart failure and with stage 5 chronic kidney disease, or end stage renal disease (principal); E43 Unspecified severe protein-calorie malnutrition; I95.9 Hypotension, unspecified; E11.22 Type 2 diabetes mellitus with diabetic chronic kidney disease; E11.40 Type 2 diabetes mellitus with diabetic neuropathy, unspecified; E11.51 Type 2 diabetes mellitus with diabetic peripheral angiopathy without gangrene; E11.621 Type 2 diabetes mellitus with foot ulcer; I48.91 Unspecified atrial fibrillation; E11.319 Type 2 diabetes mellitus with unspecified diabetic retinopathy without macular edema; R07.89 Other chest pain; N18.6 End stage renal disease; L97.509 Non-pressure chronic ulcer of other part of unspecified foot with unspecified severity; Z99.2 Dependence on renal dialysis; Z99.81 Dependence on supplemental oxygen; J44.9 Chronic obstructive pulmonary disease, unspecified; I50.33 Acute on chronic diastolic (congestive) heart failure; E66.9 Obesity, unspecified; K21.9 Gastro-esophageal reflux disease without esophagitis; H54.8 Legal blindness, as defined in USA; D63.8 Anemia in other chronic diseases classified elsewhere; F17.210 Nicotine dependence, cigarettes, uncomplicated; Z79.4 Long term (current) use of insulin; Z88.0 Allergy status to penicillin; Z89.511 Acquired absence of right leg below knee; Z89.611 Acquired absence of right leg above knee; Z79.899 Other long term (current) drug therapy; Z68.32 Body mass index [BMI] 32.0-32.9, adult; Z91.19 Patient's noncompliance with other medical treatment and regimen
CPT/HCPCS: 36415; 71045; 80048; 80051; 80061; 80305; 82550; 82553; 82962; 83735; 83880; 84443; 84484; 85014; 85018; 86850; 86900; 86920; 93005; 94640; 96374; 99285; A6261; J0885; J1644; J1815; J2930; J7050; J7611; J7620; P9016

== ENCOUNTER 2018-10-22 16:08 | Inpatient (IN) | payer MEDICAID ==
[~2018-10-22] VITALS: Ht 160 cm; Wt 80.7 kg
[~2018-10-22 16:08] MED LIST changes: +ASPI-1158 PO; +ATOR20TA PO; -WARF6TAB22 PO
[2018-10-22] MEDS ORDERED: NITROGLYCERIN OINT 1GM/INCH UDPKT TD ONE (16:45)
[2018-10-22] MEDS ORDERED: ASPIRIN 81MG TABLET PO ONE (16:45)
[2018-10-22 17:56] LABS: BASOPHILS % 1.1 % (0.0-2.0); EOSINOPHILS % 7.2 % (0.0-5.0); HEMATOCRIT. 24.9 % (36.0-48.0); HEMOGLOBIN. 7.9 g/dL (12.0-16.0); LYMPHOCYTES % 31.8 % (20.0-50.0); MEAN CORPUSCULAR VOLUME 75.6 fL (81.0-99.0); MEAN PLATELET VOLUME 7.6 fl (7.4-10.4); MONOCYTES % 9.3 % (2.0-8.0); NEUTROPHILS % 50.6 % (40.0-76.0); PLATELET 206 x1000/uL (130-400); RED BLOOD CELL COUNT 3.29 mill/uL (4.2-5.4); RED CELL DISTRIBUTION WIDTH 19.6 % (11.6-14.6)
[2018-10-22 18:02] LABS: CHLORIDE 107 mEq/L (98-107); PARTIAL THROMBOPLASTIN TIME 28.7 sec (23.4-31.0); PROTHROMBIN TIME 10.5 sec (9.1-11.1)
[2018-10-22 18:08] LABS: PHOSPHORUS 4.4 mg/dL (2.5-4.9)
[2018-10-23] VITALS (7 sets, daily range): BP systolic 143–176; BP diastolic 52–80
[2018-10-23] MEDS ORDERED: DEXTROSE 50% WATER 50ML SYRINGE IV PRN (00:45)
[2018-10-23] MEDS ORDERED: HYDROCODONE/ACETAMINOPHEN 5/325MG TABLET PO PRN (00:45)
[2018-10-23] MEDS ORDERED: CLONIDINE 0.1MG TABLET PO PRN (00:45)
[2018-10-23] MEDS ORDERED: IPRATROPIUM/ALBUTEROL 0.5-3(2.5)MG/3ML NEB HHN PRN (00:45)
[2018-10-23] MEDS: BLOOD SUGAR DIAGNOSTIC STRIP TEST SCH ×4 (05:50→21:27)
[2018-10-23] MEDS: INSULIN LISPRO 100 UNITS/ML SUBCUT SCH ×4 (05:50→21:00)
[2018-10-23] MEDS: CALCIUM ACETATE 667MG CAPSULE PO SCH ×3 (07:40→16:19)
[2018-10-23 08:53] LABS: HEMOGLOBIN 7.6 g/dL (12.0-16.0); MEAN CORPUSCULAR HEMOGLOBIN 23.8 pg (28.0-32.0); MEAN CORPUSCULAR VOLUME 74.9 fL (81.0-99.0); PLATELET 206 x1000/uL (130-400); RED CELL DISTRIBUTION WIDTH 19.3 % (11.6-14.6)
[2018-10-23] MEDS: ENALAPRIL 5MG TABLET PO SCH (09:00)
[2018-10-23] MEDS: METOPROLOL TARTRATE 50MG TABLET PO SCH ×2 (09:00→21:13)
[2018-10-23] MEDS ORDERED: MEDICATION NOT ON FORMULARY EA (Metoprolol Tartrate 1 TAB) PO SCH (09:00)
[2018-10-23] MEDS: FERROUS SULFATE 325MG TABLET PO SCH ×2 (09:00→16:19)
[2018-10-23] MEDS ORDERED: MEDICATION NOT ON FORMULARY EA (Calcium Acetate (Phoslo) 667 MG) PO SCH (09:00)
[2018-10-23 16:00] LABS: CREATINE KINASE 50 IU/L (26-192)
[2018-10-23 16:01] LABS: CREATINE KINASE MB FRACTION < 1.0 ng/mL (0.5-3.6)
[2018-10-23] MEDS ORDERED: LACTULOSE 20G/30ML UDC PO NR (17:30)
[2018-10-23] MEDS ORDERED: NA PHOS,M-B/NA PHOS,DI-BA ENEMA 118ML PR PRN (17:30)
[2018-10-23] MEDS: EPOETIN ALFA 10000UNITS/ML VIAL SUBCUT SCH (21:08)
[2018-10-23] MEDS: ATORVASTATIN CALCIUM 20MG TABLET PO SCH (21:08)
[2018-10-24] VITALS: BP 149/53
[2018-10-24 04:00] VITALS: BP 157/50
[2018-10-24] MEDS: BLOOD SUGAR DIAGNOSTIC STRIP TEST SCH ×4 (06:52→22:01)
[2018-10-24] MEDS: INSULIN LISPRO 100 UNITS/ML SUBCUT SCH ×4 (07:18→21:00)
[2018-10-24 08:00] VITALS: BP 153/61
[2018-10-24] MEDS: ENALAPRIL 5MG TABLET PO SCH (08:30)
[2018-10-24] MEDS: AMLODIPINE 10MG TABLET PO SCH (08:30)
[2018-10-24] MEDS: CALCIUM ACETATE 667MG CAPSULE PO SCH ×3 (08:30→17:35)
[2018-10-24] MEDS: FERROUS SULFATE 325MG TABLET PO SCH ×2 (08:30→17:35)
[2018-10-24 10:49] LABS: CHLORIDE 106 mEq/L (98-107)
[2018-10-24 10:59] LABS: CREATINE KINASE 50 IU/L (26-192)
[2018-10-24 11:02] LABS: CREATINE KINASE MB FRACTION < 1.0 ng/mL (0.5-3.6)
[2018-10-24 13:46] LABS: BASOPHILS % 0.5 % (0.0-2.0); EOSINOPHILS % 4.7 % (0.0-5.0); HEMATOCRIT. 24.9 % (36.0-48.0); HEMOGLOBIN. 7.8 g/dL (12.0-16.0); MEAN CORPUSCULAR HEMOGLOBIN 23.7 pg (28.0-32.0); MEAN CORPUSCULAR VOLUME 75.4 fL (81.0-99.0); MONOCYTES % 8.3 % (2.0-8.0); NEUTROPHILS % 50.5 % (40.0-76.0); PLATELET 211 x1000/uL (130-400); RED BLOOD CELL COUNT 3.31 mill/uL (4.2-5.4); RED CELL DISTRIBUTION WIDTH 19.1 % (11.6-14.6)
[2018-10-24 16:00] VITALS: BP 112/67
[2018-10-24] MEDS ORDERED: HEPARIN SODIUM 1,000 UNIT/1ML VIAL IV NR (17:15)
[2018-10-24 20:00] VITALS: BP 111/58
[2018-10-24] MEDS ORDERED: ONDANSETRON HCL 4MG/2ML INJ IV PRN (22:15)
[2018-10-24] MEDS ORDERED: MAGNESIUM/ALUMINUM HYDROXIDE/SIMETHICONE 30ML UDC PO PRN (22:15)
[2018-10-24] MEDS: ATORVASTATIN CALCIUM 20MG TABLET PO SCH (22:31)
[2018-10-25] VITALS (7 sets, daily range): BP systolic 130–149; BP diastolic 41–82
[2018-10-25] MEDS: BLOOD SUGAR DIAGNOSTIC STRIP TEST SCH ×4 (05:39→21:00)
[2018-10-25] MEDS: INSULIN LISPRO 100 UNITS/ML SUBCUT SCH ×5 (05:47→21:13)
[2018-10-25] MEDS: ENALAPRIL 5MG TABLET PO SCH (10:25)
[2018-10-25] MEDS: FERROUS SULFATE 325MG TABLET PO SCH ×2 (10:25→17:00)
[2018-10-25] MEDS: AMLODIPINE 10MG TABLET PO SCH (10:25)
[2018-10-25] MEDS: CALCIUM ACETATE 667MG CAPSULE PO SCH ×3 (10:25→17:00)
[2018-10-25] MEDS: EPOETIN ALFA 10000UNITS/ML VIAL SUBCUT SCH (21:06)
[2018-10-25] MEDS: ATORVASTATIN CALCIUM 20MG TABLET PO SCH (21:06)
[2018-10-25 21:59] LABS: BASOPHILS % 0.8 % (0.0-2.0); EOSINOPHILS % 3.5 % (0.0-5.0); HEMATOCRIT. 24.7 % (36.0-48.0); HEMOGLOBIN. 7.8 g/dL (12.0-16.0); MEAN CORPUSCULAR VOLUME 76.3 fL (81.0-99.0); MEAN PLATELET VOLUME 7.9 fl (7.4-10.4); MONOCYTES % 8.4 % (2.0-8.0); NEUTROPHILS % 55.3 % (40.0-76.0); PLATELET 186 x1000/uL (130-400); RED BLOOD CELL COUNT 3.24 mill/uL (4.2-5.4); RED CELL DISTRIBUTION WIDTH 19.2 % (11.6-14.6)
[2018-10-26] VITALS (8 sets, daily range): BP systolic 105–148; BP diastolic 49–76
[2018-10-26] MEDS: DIPHENHYDRAMINE 50MG CAPSULE PO PRN ×3 (00:37→20:22)
[2018-10-26] MEDS: BLOOD SUGAR DIAGNOSTIC STRIP TEST SCH ×3 (05:46→20:16)
[2018-10-26] MEDS: INSULIN LISPRO 100 UNITS/ML SUBCUT SCH ×2 (05:46→21:00)
[2018-10-26] MEDS: CALCIUM ACETATE 667MG CAPSULE PO SCH (08:00)
[2018-10-26] MEDS: FERROUS SULFATE 325MG TABLET PO SCH (09:00)
[2018-10-26] MEDS: ENALAPRIL 5MG TABLET PO SCH (10:00)
[2018-10-26] MEDS: AMLODIPINE 10MG TABLET PO SCH (10:00)
[2018-10-26] MEDS: ATORVASTATIN CALCIUM 20MG TABLET PO SCH (20:17)
[2018-10-27] MEDS: BLOOD SUGAR DIAGNOSTIC STRIP TEST SCH ×3 (05:22→17:10)
[2018-10-27] MEDS: INSULIN LISPRO 100 UNITS/ML SUBCUT SCH ×3 (05:22→17:40)
[2018-10-27] MEDS: CALCIUM ACETATE 667MG CAPSULE PO SCH ×3 (07:40→17:40)
[2018-10-27 08:00] VITALS: BP 148/57
[2018-10-27] MEDS: AMLODIPINE 10MG TABLET PO SCH (08:06)
[2018-10-27] MEDS: FERROUS SULFATE 325MG TABLET PO SCH ×2 (08:06→17:00)
[2018-10-27] MEDS: ENALAPRIL 5MG TABLET PO SCH (08:06)
[2018-10-27] MEDS ORDERED: DOCUSATE SODIUM 250MG CAPSULE PO SCH (09:00)
[2018-10-27] MEDS: DIPHENHYDRAMINE 50MG CAPSULE PO PRN (12:24)
[2018-10-27 13:53] VITALS: BP 136/62
[2018-10-27 16:30] VITALS: BP 136/60
== END 2018-10-27 18:32 | DRG 198 ==
LOC: ER 16:08 → 8WST 18:40 → EDBEDREQ 18:54 → EDBEDREQTM 18:54 → ENRESERV 20:00
PROVIDERS: ADMIT Internal Medicine; ATTEND Internal Medicine
PROC: 5A1D70Z Performance of Urinary Filtration, Intermittent, Less than 6 Hours Per Day (ICD-10-PCS; principal; 2018-10-23)
PROC: 5A1D70Z Performance of Urinary Filtration, Intermittent, Less than 6 Hours Per Day (ICD-10-PCS; 2018-10-25)
PROC: 5A1D70Z Performance of Urinary Filtration, Intermittent, Less than 6 Hours Per Day (ICD-10-PCS; 2018-10-26)
DX: I24.8 Other forms of acute ischemic heart disease (principal); I13.2 Hypertensive heart and chronic kidney disease with heart failure and with stage 5 chronic kidney disease, or end stage renal disease; E44.0 Moderate protein-calorie malnutrition; E11.22 Type 2 diabetes mellitus with diabetic chronic kidney disease; E11.51 Type 2 diabetes mellitus with diabetic peripheral angiopathy without gangrene; N18.6 End stage renal disease; E78.5 Hyperlipidemia, unspecified; R00.1 Bradycardia, unspecified; D63.8 Anemia in other chronic diseases classified elsewhere; J44.9 Chronic obstructive pulmonary disease, unspecified; I50.9 Heart failure, unspecified; E78.00 Pure hypercholesterolemia, unspecified; K59.00 Constipation, unspecified; Z86.73 Personal history of transient ischemic attack (TIA), and cerebral infarction without residual deficits; Z91.19 Patient's noncompliance with other medical treatment and regimen; Z99.2 Dependence on renal dialysis; Z89.511 Acquired absence of right leg below knee; Z87.891 Personal history of nicotine dependence; Z88.1 Allergy status to other antibiotic agents; Z91.15 Patient's noncompliance with renal dialysis; Z88.0 Allergy status to penicillin; Z79.01 Long term (current) use of anticoagulants; Z79.82 Long term (current) use of aspirin; Z79.899 Other long term (current) drug therapy; Z68.31 Body mass index [BMI] 31.0-31.9, adult
CPT/HCPCS: 36415; 71045; 80048; 82550; 82553; 82962; 83036; 83735; 84100; 84484; 85027; 93005; 99291; A6261; C1893; J0885; J1644; J1815; J7050; Q0163

== ENCOUNTER 2018-10-27 19:59 | Inpatient (IN) | payer MEDICAID ==
[~2018-10-27] VITALS: Ht 170.2 cm; Wt 64.0 kg
[2018-10-28] VITALS (7 sets, daily range): BP systolic 144–208; BP diastolic 52–66
[2018-10-28 02:42] LABS: BASOPHILS % 0.7 % (0.0-2.0); EOSINOPHILS % 2.2 % (0.0-5.0); HEMATOCRIT. 27.8 % (36.0-48.0); HEMOGLOBIN. 8.7 g/dL (12.0-16.0); LYMPHOCYTES % 15.3 % (20.0-50.0); MEAN CORPUSCULAR HEMOGLOBIN 23.8 pg (28.0-32.0); MEAN CORPUSCULAR VOLUME 75.9 fL (81.0-99.0); MEAN PLATELET VOLUME 7.1 fl (7.4-10.4); MONOCYTES % 9.2 % (2.0-8.0); NEUTROPHILS % 72.6 % (40.0-76.0); PLATELET 219 x1000/uL (130-400); RED BLOOD CELL COUNT 3.67 mill/uL (4.2-5.4); RED CELL DISTRIBUTION WIDTH 19.1 % (11.6-14.6)
[2018-10-28 02:44] LABS: CHLORIDE 104 mEq/L (98-107)
[2018-10-28 02:45] LABS: INR 1.1; PROTHROMBIN TIME 10.8 sec (9.1-11.1)
[2018-10-28] MEDS ORDERED: DEXTROSE 50% WATER 50ML SYRINGE IV PRN (05:30)
[2018-10-28] MEDS ORDERED: HYDROCODONE/ACETAMINOPHEN 10/325MG TABLET PO PRN (05:30)
[2018-10-28] MEDS: GUAIFENESIN 200MG/10ML SUGAR FREE UDC PO PRN ×2 (06:07→23:55)
[2018-10-28] MEDS: BLOOD SUGAR DIAGNOSTIC STRIP TEST SCH ×4 (06:12→20:57)
[2018-10-28] MEDS: INSULIN LISPRO 100 UNITS/ML SUBCUT SCH ×4 (07:50→20:57)
[2018-10-28] MEDS: CALCIUM ACETATE 667MG CAPSULE PO SCH ×3 (07:50→17:50)
[2018-10-28] MEDS: FERROUS SULFATE 325MG TABLET PO SCH ×2 (07:50→17:50)
[2018-10-28] MEDS: ENALAPRIL 5MG TABLET PO SCH (09:00)
[2018-10-28] MEDS ORDERED: MEDICATION NOT ON FORMULARY EA (Calcium Acetate (Phoslo) 667 MG) PO SCH (09:00)
[2018-10-28] MEDS ORDERED: MEDICATION NOT ON FORMULARY EA (Aspirin (Aspirin Ec) 81 MG) PO SCH (09:00)
[2018-10-28] MEDS: ASPIRIN 81MG TABLET PO SCH (09:00)
[2018-10-28] MEDS ORDERED: NIFEDIPINE XL 60MG TAB PO SCH (13:00)
[2018-10-28] MEDS: ATORVASTATIN CALCIUM 20MG TABLET PO SCH (20:58)
[2018-10-29] VITALS: BP 163/61
[2018-10-29 04:00] VITALS: BP 158/52
[2018-10-29] MEDS: BLOOD SUGAR DIAGNOSTIC STRIP TEST SCH ×4 (07:49→21:09)
[2018-10-29] MEDS: FERROUS SULFATE 325MG TABLET PO SCH ×3 (07:50→17:50)
[2018-10-29] MEDS: INSULIN LISPRO 100 UNITS/ML SUBCUT SCH ×4 (07:50→21:00)
[2018-10-29] MEDS: CALCIUM ACETATE 667MG CAPSULE PO SCH ×3 (07:50→17:50)
[2018-10-29 08:00] VITALS: BP 148/51
[2018-10-29] MEDS: GUAIFENESIN 200MG/10ML SUGAR FREE UDC PO PRN (08:08)
[2018-10-29] MEDS: ASPIRIN 81MG TABLET PO SCH ×2 (09:00→12:51)
[2018-10-29] MEDS: ENALAPRIL 5MG TABLET PO SCH (09:00)
[2018-10-29] MEDS: AMLODIPINE 5MG TABLET PO NR ×2 (11:00→16:10)
[2018-10-29 12:00] VITALS: BP 114/49
[2018-10-29 13:15] LABS: HEMATOCRIT. 25.3 % (36.0-48.0); HEMOGLOBIN. 7.9 g/dL (12.0-16.0); MEAN CORPUSCULAR HEMOGLOBIN 23.7 pg (28.0-32.0); MEAN CORPUSCULAR VOLUME 75.8 fL (81.0-99.0); PLATELET 181 x1000/uL (130-400); RED BLOOD CELL COUNT 3.35 mill/uL (4.2-5.4); RED CELL DISTRIBUTION WIDTH 18.3 % (11.6-14.6)
[2018-10-29 14:16] LABS: PLATELET ESTIMATE NORMAL
[2018-10-29 16:00] VITALS: BP 140/59
[2018-10-29 20:00] VITALS: BP 146/83
[2018-10-29] MEDS: AMLODIPINE 5MG TABLET PO SCH (21:12)
[2018-10-29] MEDS: ATORVASTATIN CALCIUM 20MG TABLET PO SCH (21:12)
[2018-10-29] MEDS: IPRATROPIUM/ALBUTEROL 0.5-3(2.5)MG/3ML NEB HHN SCH (23:45)
[2018-10-30] VITALS: BP 122/58
[2018-10-30] MEDS: IPRATROPIUM/ALBUTEROL 0.5-3(2.5)MG/3ML NEB HHN SCH ×5 (03:50→21:44)
[2018-10-30 04:00] VITALS: BP 115/56
[2018-10-30] MEDS: BLOOD SUGAR DIAGNOSTIC STRIP TEST SCH ×4 (05:56→20:50)
[2018-10-30] MEDS: FERROUS SULFATE 325MG TABLET PO SCH ×2 (07:50→17:50)
[2018-10-30] MEDS: CALCIUM ACETATE 667MG CAPSULE PO SCH ×3 (07:50→17:50)
[2018-10-30] MEDS: INSULIN LISPRO 100 UNITS/ML SUBCUT SCH ×4 (07:50→20:50)
[2018-10-30 08:00] VITALS: BP 113/56
[2018-10-30 08:36] VITALS: BP 112/51
[2018-10-30] MEDS: ENALAPRIL 5MG TABLET PO SCH (09:00)
[2018-10-30] MEDS: AMLODIPINE 5MG TABLET PO SCH ×2 (09:00→20:59)
[2018-10-30 16:12] VITALS: BP 138/43
[2018-10-30 18:17] LABS: HEMOGLOBIN. 7.5 g/dL (12.0-16.0); MEAN CORPUSCULAR HEMOGLOBIN 23.7 pg (28.0-32.0); MEAN CORPUSCULAR VOLUME 76.4 fL (81.0-99.0); MEAN PLATELET VOLUME 7.6 fl (7.4-10.4); PLATELET 167 x1000/uL (130-400); RED BLOOD CELL COUNT 3.14 mill/uL (4.2-5.4); RED CELL DISTRIBUTION WIDTH 18.4 % (11.6-14.6)
[2018-10-30 19:03] LABS: PLATELET ESTIMATE NORMAL
[2018-10-30 20:00] VITALS: BP 112/50
[2018-10-30] MEDS: ATORVASTATIN CALCIUM 20MG TABLET PO SCH (20:59)
[2018-10-30] MEDS ORDERED: EPOETIN ALFA 10000UNITS/ML VIAL SUBCUT SCH (21:00)
[2018-10-31] VITALS (8 sets, daily range): BP systolic 108–144; BP diastolic 34–62
[2018-10-31] MEDS: IPRATROPIUM/ALBUTEROL 0.5-3(2.5)MG/3ML NEB HHN SCH ×3 (00:38→08:06)
[2018-10-31] MEDS: BLOOD SUGAR DIAGNOSTIC STRIP TEST SCH ×2 (06:33→12:20)
[2018-10-31] MEDS: CALCIUM ACETATE 667MG CAPSULE PO SCH ×2 (07:50→12:50)
[2018-10-31] MEDS: FERROUS SULFATE 325MG TABLET PO SCH (07:50)
[2018-10-31] MEDS: INSULIN LISPRO 100 UNITS/ML SUBCUT SCH ×2 (07:50→12:50)
[2018-10-31] MEDS: ENALAPRIL 5MG TABLET PO SCH (09:00)
[2018-10-31] MEDS: ASPIRIN 81MG TABLET PO SCH (09:00)
[2018-10-31] MEDS: AMLODIPINE 5MG TABLET PO SCH (09:00)
[2018-10-31] MEDS ORDERED: MAGNESIUM OXIDE 400MG TABLET PO SCH (09:45)
[2018-10-31 11:42] LABS: HEMATOCRIT. 22.8 % (36.0-48.0); HEMOGLOBIN. 7.2 g/dL (12.0-16.0); MEAN CORPUSCULAR HEMOGLOBIN 23.9 pg (28.0-32.0); MEAN CORPUSCULAR VOLUME 75.4 fL (81.0-99.0); MEAN PLATELET VOLUME 7.8 fl (7.4-10.4); PLATELET 162 x1000/uL (130-400); RED BLOOD CELL COUNT 3.02 mill/uL (4.2-5.4); RED CELL DISTRIBUTION WIDTH 18.4 % (11.6-14.6)
[2018-10-31 13:36] LABS: PLATELET ESTIMATE NORMAL
== END 2018-10-31 18:45 | DRG 201 ==
LOC: ER 19:59 → EDBEDREQ 23:56 → EDBEDREQTM 23:56 → 5WST 10-28 00:19 → EDBEDREQ 10-28 00:21 → ENRESERV 10-28 01:00 → 6WST 10-28 02:55
PROVIDERS: ADMIT Internal Medicine; ATTEND Internal Medicine
PROC: 5A1D70Z Performance of Urinary Filtration, Intermittent, Less than 6 Hours Per Day (ICD-10-PCS; 2018-10-28)
PROC: 5A1D70Z Performance of Urinary Filtration, Intermittent, Less than 6 Hours Per Day (ICD-10-PCS; 2018-10-30)
PROC: 30233N1 Transfusion of Nonautologous Red Blood Cells into Peripheral Vein, Percutaneous Approach (ICD-10-PCS; principal; 2018-10-31)
DX: R00.1 Bradycardia, unspecified (principal); E11.22 Type 2 diabetes mellitus with diabetic chronic kidney disease; E11.51 Type 2 diabetes mellitus with diabetic peripheral angiopathy without gangrene; T50.905A Adverse effect of unspecified drugs, medicaments and biological substances, initial encounter; I13.11 Hypertensive heart and chronic kidney disease without heart failure, with stage 5 chronic kidney disease, or end stage renal disease; N18.6 End stage renal disease; J44.9 Chronic obstructive pulmonary disease, unspecified; E78.5 Hyperlipidemia, unspecified; D63.8 Anemia in other chronic diseases classified elsewhere; E11.319 Type 2 diabetes mellitus with unspecified diabetic retinopathy without macular edema; E11.36 Type 2 diabetes mellitus with diabetic cataract; E83.42 Hypomagnesemia; H54.8 Legal blindness, as defined in USA; Z89.511 Acquired absence of right leg below knee; Z88.1 Allergy status to other antibiotic agents; Z88.0 Allergy status to penicillin; Z79.899 Other long term (current) drug therapy; Z99.2 Dependence on renal dialysis; Z79.4 Long term (current) use of insulin; Z79.82 Long term (current) use of aspirin; Y92.89 Other specified places as the place of occurrence of the external cause
CPT/HCPCS: 36415; 71045; 80048; 82962; 83735; 83880; 84443; 84484; 85007; 85027; 86850; 86900; 86920; 93005; 94640; 99285; C1893; J0885; J1815; J7050; J7620; P9016

== ENCOUNTER 2018-11-17 14:41 | Inpatient (IN) | payer MEDICAID ==
[~2018-11-17] VITALS: Ht 160 cm; Wt 80.9 kg
[~2018-11-17 14:41] MED LIST changes: -CLON0.2T PO
[2018-11-17 16:15] LABS: BASOPHILS % 0.8 % (0.0-2.0); EOSINOPHILS % 1.2 % (0.0-5.0); HEMATOCRIT. 31.2 % (36.0-48.0); HEMOGLOBIN. 9.7 g/dL (12.0-16.0); LYMPHOCYTES % 24.6 % (20.0-50.0); MEAN CORPUSCULAR HEMOGLOBIN 24.1 pg (28.0-32.0); MEAN CORPUSCULAR VOLUME 77.8 fL (81.0-99.0); MEAN PLATELET VOLUME 7.7 fl (7.4-10.4); MONOCYTES % 9.9 % (2.0-8.0); NEUTROPHILS % 63.5 % (40.0-76.0); PLATELET 248 x1000/uL (130-400); RED CELL DISTRIBUTION WIDTH 16.9 % (11.6-14.6)
[2018-11-17 16:17] LABS: CHLORIDE 102 mEq/L (98-107)
[2018-11-17 16:24] LABS: BETA HYDROXYBUTYRATE 0.2 mMol/L (0.0-0.3)
[2018-11-17 17:06] LABS: CLARITY URINE CLOUDY (CLEAR); COLOR URINE YELLOW (YELLOW); KETONES URINE NEGATIVE (NEGATIVE); LEUKOCYTE ESTERASE URINE 3+ (NEGATIVE); NITRITE URINE NEGATIVE (NEGATIVE); OCCULT BLOOD URINE 1+ (NEGATIVE); PH URINE >=9.0 (4.5-8.0); PROTEIN URINE 2+ (NEGATIVE); SPECIFIC GRAVITY URINE 1.008 (1.005-1.030); UROBILINOGEN URINE 0.2 E.U./dL (0.2-1.0)
[2018-11-17 17:38] LABS: *AMPHETAMINES SCREEN URINE NEGATIVE (NEGATIVE); *BARBITURATES SCREEN URINE NEGATIVE (NEGATIVE)
[2018-11-17 17:39] LABS: *BENZODIAZEPINES SCREEN URINE NEGATIVE (NEGATIVE); *COCAINE SCREEN URINE NEGATIVE (NEGATIVE); CANNABINOID URINE SCREEN NEGATIVE (NEGATIVE); METHADONE URINE SCREEN NEGATIVE (NEGATIVE); OPIATES URINE SCREEN NEGATIVE (NEGATIVE); PHENCYCLIDINE URINE SCREEN NEGATIVE (NEGATIVE)
[2018-11-17] MEDS ORDERED: DOCUSATE SODIUM 100MG CAPSULE PO PRN (18:00)
[2018-11-17] MEDS ORDERED: MAGNESIUM/ALUMINUM HYDROXIDE/SIMETHICONE 30ML UDC PO PRN (18:00)
[2018-11-17] MEDS ORDERED: CLONIDINE 0.1MG TABLET PO PRN (18:00)
[2018-11-17] MEDS ORDERED: IPRATROPIUM/ALBUTEROL 0.5-3(2.5)MG/3ML NEB INH PRN (18:00)
[2018-11-17] MEDS ORDERED: DIPHENHYDRAMINE 50MG/ML VIAL IV PRN (18:00)
[2018-11-17] MEDS ORDERED: ACETAMINOPHEN 325MG TABLET PO PRN (18:00)
[2018-11-17] MEDS ORDERED: HYDROCODONE/ACETAMINOPHEN 5/325MG TABLET PO PRN (18:00)
[2018-11-17] MEDS ORDERED: ONDANSETRON HCL 4MG/2ML INJ IV PRN (18:00)
[2018-11-18] VITALS: BP 142/61
[2018-11-18 02:11] VITALS: BP 140/66
[2018-11-18] MEDS ORDERED: PNEUMOCOCCAL 23-VAL P-SAC VAC 0.5 ML IM ONE (02:45)
[2018-11-18] MEDS ORDERED: INFLUENZA VIRUS VACCINE(AFLURIA) 0.5ML SYR IM ONE (02:45)
[2018-11-18] MEDS ORDERED: DEXTROSE 50% WATER 50ML SYRINGE IV PRN (03:15)
[2018-11-18 04:00] VITALS: BP 123/83
[2018-11-18] MEDS: BLOOD SUGAR DIAGNOSTIC STRIP TEST SCH ×4 (07:20→21:29)
[2018-11-18] MEDS: INSULIN LISPRO 100 UNITS/ML SUBCUT SCH ×4 (07:50→21:00)
[2018-11-18] MEDS: GUAIFENESIN 200MG/10ML SUGAR FREE UDC PO PRN (10:35)
[2018-11-18] MEDS: ENALAPRIL 5MG TABLET PO SCH (11:45)
[2018-11-18 12:00] VITALS: BP 133/88
[2018-11-18 16:46] LABS: BASOPHILS % 0.2 % (0.0-2.0); EOSINOPHILS % 1.1 % (0.0-5.0); HEMATOCRIT. 29.8 % (36.0-48.0); HEMOGLOBIN. 9.4 g/dL (12.0-16.0); LYMPHOCYTES % 36.4 % (20.0-50.0); MEAN CORPUSCULAR HEMOGLOBIN 24.4 pg (28.0-32.0); MEAN CORPUSCULAR VOLUME 77.8 fL (81.0-99.0); MEAN PLATELET VOLUME 7.5 fl (7.4-10.4); MONOCYTES % 10.2 % (2.0-8.0); NEUTROPHILS % 52.1 % (40.0-76.0); PLATELET 227 x1000/uL (130-400); RED BLOOD CELL COUNT 3.83 mill/uL (4.2-5.4); RED CELL DISTRIBUTION WIDTH 17.5 % (11.6-14.6)
[2018-11-18 16:51] VITALS: BP 85/45
[2018-11-18 16:51] LABS: CHLORIDE 107 mEq/L (98-107)
[2018-11-18] MEDS: FERROUS SULFATE 325MG TABLET PO SCH (17:32)
[2018-11-18 20:14] VITALS: BP 105/86
[2018-11-18] MEDS: ATORVASTATIN CALCIUM 20MG TABLET PO SCH ×2 (21:00→21:51)
[2018-11-18] MEDS: AMLODIPINE 5MG TABLET PO SCH (21:00)
[2018-11-18] MEDS ORDERED: METOPROLOL TARTRATE 50MG TABLET PO SCH (21:00)
[2018-11-19 04:10] VITALS: BP 141/76
[2018-11-19] MEDS: INSULIN LISPRO 100 UNITS/ML SUBCUT SCH ×4 (07:50→20:56)
[2018-11-19 08:00] VITALS: BP 136/67
[2018-11-19] MEDS: BLOOD SUGAR DIAGNOSTIC STRIP TEST SCH ×4 (08:11→20:56)
[2018-11-19] MEDS: FERROUS SULFATE 325MG TABLET PO SCH ×3 (08:48→17:46)
[2018-11-19] MEDS: ENALAPRIL 5MG TABLET PO SCH ×2 (08:49→09:00)
[2018-11-19] MEDS: AMLODIPINE 5MG TABLET PO SCH ×2 (08:49→20:56)
[2018-11-19 11:55] VITALS: BP 149/79
[2018-11-19 13:35] LABS: BASOPHILS % 0.4 % (0.0-2.0); HEMATOCRIT. 31.6 % (36.0-48.0); HEMOGLOBIN. 9.7 g/dL (12.0-16.0); LYMPHOCYTES % 35.6 % (20.0-50.0); MEAN CORPUSCULAR HEMOGLOBIN 24.1 pg (28.0-32.0); MEAN CORPUSCULAR VOLUME 78.1 fL (81.0-99.0); MEAN PLATELET VOLUME 7.8 fl (7.4-10.4); PLATELET 248 x1000/uL (130-400); RED BLOOD CELL COUNT 4.04 mill/uL (4.2-5.4); RED CELL DISTRIBUTION WIDTH 17.6 % (11.6-14.6)
[2018-11-19 16:18] VITALS: BP 121/58
[2018-11-19] MEDS: ATORVASTATIN CALCIUM 20MG TABLET PO SCH (20:58)
[2018-11-20] MEDS: GUAIFENESIN 200MG/10ML SUGAR FREE UDC PO PRN ×2 (06:27→13:06)
[2018-11-20] MEDS: BLOOD SUGAR DIAGNOSTIC STRIP TEST SCH ×4 (06:50→21:00)
[2018-11-20] MEDS: INSULIN LISPRO 100 UNITS/ML SUBCUT SCH ×4 (06:51→21:00)
[2018-11-20 08:03] VITALS: BP 142/81
[2018-11-20 08:20] LABS: BASOPHILS % 0.4 % (0.0-2.0); EOSINOPHILS % 1.5 % (0.0-5.0); HEMATOCRIT. 32.3 % (36.0-48.0); HEMOGLOBIN. 9.9 g/dL (12.0-16.0); LYMPHOCYTES % 32.1 % (20.0-50.0); MEAN CORPUSCULAR HEMOGLOBIN 24.1 pg (28.0-32.0); MEAN CORPUSCULAR VOLUME 78.9 fL (81.0-99.0); MEAN PLATELET VOLUME 7.7 fl (7.4-10.4); MONOCYTES % 9.7 % (2.0-8.0); NEUTROPHILS % 56.3 % (40.0-76.0); PLATELET 253 x1000/uL (130-400); RED CELL DISTRIBUTION WIDTH 17.9 % (11.6-14.6)
[2018-11-20] MEDS: ENALAPRIL 5MG TABLET PO SCH (09:00)
[2018-11-20] MEDS: AMLODIPINE 5MG TABLET PO SCH ×2 (09:00→21:22)
[2018-11-20] MEDS: FERROUS SULFATE 325MG TABLET PO SCH ×2 (10:28→10:34)
[2018-11-20 12:00] VITALS: BP 124/66
[2018-11-20 15:53] VITALS: BP 145/74
[2018-11-20 20:07] VITALS: BP 132/66
[2018-11-20] MEDS: ATORVASTATIN CALCIUM 20MG TABLET PO SCH (21:22)
[2018-11-21 00:04] VITALS: BP 112/71
[2018-11-21] MEDS: BLOOD SUGAR DIAGNOSTIC STRIP TEST SCH ×3 (07:29→17:16)
[2018-11-21 07:38] LABS: BASOPHILS % 0.5 % (0.0-2.0); EOSINOPHILS % 2.2 % (0.0-5.0); HEMOGLOBIN. 9.6 g/dL (12.0-16.0); MEAN CORPUSCULAR HEMOGLOBIN 24.3 pg (28.0-32.0); MEAN CORPUSCULAR VOLUME 78.2 fL (81.0-99.0); MEAN PLATELET VOLUME 7.6 fl (7.4-10.4); MONOCYTES % 9.7 % (2.0-8.0); NEUTROPHILS % 53.6 % (40.0-76.0); PLATELET 245 x1000/uL (130-400); RED BLOOD CELL COUNT 3.97 mill/uL (4.2-5.4); RED CELL DISTRIBUTION WIDTH 17.8 % (11.6-14.6)
[2018-11-21] MEDS: INSULIN LISPRO 100 UNITS/ML SUBCUT SCH ×3 (07:50→17:17)
[2018-11-21 08:00] VITALS: BP 162/91
[2018-11-21] MEDS: ENALAPRIL 5MG TABLET PO SCH (09:00)
[2018-11-21] MEDS: FERROUS SULFATE 325MG TABLET PO SCH ×2 (09:00→17:00)
[2018-11-21] MEDS: AMLODIPINE 5MG TABLET PO SCH (09:00)
[2018-11-21] MEDS: GUAIFENESIN 200MG/10ML SUGAR FREE UDC PO PRN (09:04)
[2018-11-21 11:51] VITALS: BP 154/84
[2018-11-21 15:56] VITALS: BP 114/66
[2018-11-21 16:12] VITALS: BP 154/84
== END 2018-11-21 19:24 | DRG 425 ==
LOC: ER 14:41 → 6WST 17:27 → ENRESERV 21:22
PROVIDERS: ADMIT Internal Medicine; ATTEND Internal Medicine
PROC: 5A1D70Z Performance of Urinary Filtration, Intermittent, Less than 6 Hours Per Day (ICD-10-PCS; principal; 2018-11-18)
PROC: 5A1D70Z Performance of Urinary Filtration, Intermittent, Less than 6 Hours Per Day (ICD-10-PCS; 2018-11-21)
DX: E87.8 Other disorders of electrolyte and fluid balance, not elsewhere classified (principal); I13.2 Hypertensive heart and chronic kidney disease with heart failure and with stage 5 chronic kidney disease, or end stage renal disease; E11.22 Type 2 diabetes mellitus with diabetic chronic kidney disease; E11.42 Type 2 diabetes mellitus with diabetic polyneuropathy; R07.89 Other chest pain; E11.51 Type 2 diabetes mellitus with diabetic peripheral angiopathy without gangrene; N18.6 End stage renal disease; I82.501 Chronic embolism and thrombosis of unspecified deep veins of right lower extremity; J44.9 Chronic obstructive pulmonary disease, unspecified; I50.32 Chronic diastolic (congestive) heart failure; E78.5 Hyperlipidemia, unspecified; K57.90 Diverticulosis of intestine, part unspecified, without perforation or abscess without bleeding; H54.8 Legal blindness, as defined in USA; K21.9 Gastro-esophageal reflux disease without esophagitis; D63.1 Anemia in chronic kidney disease; Z79.82 Long term (current) use of aspirin; Z91.15 Patient's noncompliance with renal dialysis; Z89.511 Acquired absence of right leg below knee; I25.2 Old myocardial infarction; Z87.891 Personal history of nicotine dependence; Z79.4 Long term (current) use of insulin; Z99.2 Dependence on renal dialysis; Z91.19 Patient's noncompliance with other medical treatment and regimen; Z88.0 Allergy status to penicillin; Z88.1 Allergy status to other antibiotic agents; Z79.899 Other long term (current) drug therapy; M94.0 Chondrocostal junction syndrome [Tietze]
CPT/HCPCS: 36415; 71045; 78582; 80048; 80305; 82010; 82962; 83605; 83880; 84146; 84443; 84484; 85379; 87804; 90686; 90732; 93005; 93970; 94640; 97163; 97166; 97530; 99285; A9558; J7620

== ENCOUNTER 2018-12-03 16:05 | Inpatient (IN) | payer MEDICAID ==
[~2018-12-03] VITALS: Ht 162.6 cm; Wt 81.6 kg
[~2018-12-03 16:05] MED LIST changes: -METO-539 PO
[2018-12-03] MEDS ORDERED: SODIUM CHLORIDE 0.9% 1,000 ML IV ONE (16:44)
[2018-12-03 17:21] LABS: CHLORIDE 100 mEq/L (98-107)
[2018-12-03 17:23] LABS: BASOPHILS % 0.3 % (0.0-2.0); EOSINOPHILS % 2.9 % (0.0-5.0); LYMPHOCYTES % 25.8 % (20.0-50.0); MEAN CORPUSCULAR HEMOGLOBIN 23.9 pg (28.0-32.0); MEAN CORPUSCULAR VOLUME 78.9 fL (81.0-99.0); MEAN PLATELET VOLUME 7.5 fl (7.4-10.4); MONOCYTES % 10.8 % (2.0-8.0); NEUTROPHILS % 60.2 % (40.0-76.0); PLATELET 183 x1000/uL (130-400); RED BLOOD CELL COUNT 4.18 mill/uL (4.2-5.4); RED CELL DISTRIBUTION WIDTH 18.2 % (11.6-14.6)
[2018-12-03] MEDS ORDERED: HYDROCODONE/ACETAMINOPHEN 5/325MG TABLET PO PRN (19:30)
[2018-12-03] MEDS ORDERED: ONDANSETRON HCL 4MG/2ML INJ IV PRN (19:30)
[2018-12-03] MEDS ORDERED: DILTIAZEM HCL 5MG/ML 5ML VIAL IV PRN (19:30)
[2018-12-03] MEDS ORDERED: NITROGLYCERIN 0.4MG TABLET SL SL PRN (19:30)
[2018-12-03 21:37] VITALS: BP 145/83
[2018-12-03 21:40] VITALS: BP 145/83
[2018-12-03] MEDS ORDERED: DEXTROSE 50% WATER 50ML SYRINGE IV PRN (22:30)
[2018-12-04] VITALS: BP 146/72
[2018-12-04] MEDS ORDERED: DOCU-138 PO (00:55)
[2018-12-04] MEDS ORDERED: AMLO5TAB4 PO (00:55)
[2018-12-04 04:00] VITALS: BP 133/70
[2018-12-04] MEDS: INSULIN LISPRO 100 UNITS/ML SUBCUT SCH ×4 (06:51→20:48)
[2018-12-04] MEDS: BLOOD SUGAR DIAGNOSTIC STRIP TEST SCH ×4 (06:51→20:48)
[2018-12-04 08:00] VITALS: BP 155/80
[2018-12-04] MEDS: ASPIRIN 81MG TABLET PO SCH (08:45)
[2018-12-04] MEDS: FOLIC ACID/VITAMIN B COMP W-C TABLET PO SCH (12:03)
[2018-12-04] MEDS: CALCIUM ACETATE 667MG CAPSULE PO SCH ×2 (12:03→16:50)
[2018-12-04] MEDS ORDERED: AMLODIPINE 2.5MG TABLET PO SCH (15:00)
[2018-12-04 16:00] VITALS: BP 140/84
[2018-12-04] MEDS: ENOXAPARIN 30MG/0.3ML SYR SUBCUT SCH (16:30)
[2018-12-04] MEDS ORDERED: ENOXAPARIN 40MG/0.4ML SYR SUBCUT SCH (16:30)
[2018-12-04 20:02] VITALS: BP 122/80
[2018-12-05] VITALS: BP 145/66
[2018-12-05] MEDS: BLOOD SUGAR DIAGNOSTIC STRIP TEST SCH ×3 (07:10→20:45)
[2018-12-05] MEDS: INSULIN LISPRO 100 UNITS/ML SUBCUT SCH ×3 (07:37→20:55)
[2018-12-05 08:23] LABS: BASOPHILS % 0.7 % (0.0-2.0); EOSINOPHILS % 2.9 % (0.0-5.0); HEMATOCRIT. 35.5 % (36.0-48.0); HEMOGLOBIN. 10.7 g/dL (12.0-16.0); LYMPHOCYTES % 32.5 % (20.0-50.0); MEAN CORPUSCULAR HEMOGLOBIN 23.7 pg (28.0-32.0); MEAN CORPUSCULAR VOLUME 78.9 fL (81.0-99.0); MEAN PLATELET VOLUME 7.6 fl (7.4-10.4); MONOCYTES % 10.4 % (2.0-8.0); NEUTROPHILS % 53.5 % (40.0-76.0); PLATELET 183 x1000/uL (130-400); RED CELL DISTRIBUTION WIDTH 18.1 % (11.6-14.6)
[2018-12-05] MEDS: ASPIRIN 81MG TABLET PO SCH ×2 (09:00→15:52)
[2018-12-05 12:00] VITALS: BP 173/97
[2018-12-05] MEDS: CALCIUM ACETATE 667MG CAPSULE PO SCH ×2 (15:51→20:11)
[2018-12-05] MEDS: ENOXAPARIN 30MG/0.3ML SYR SUBCUT SCH (15:51)
[2018-12-05] MEDS: FOLIC ACID/VITAMIN B COMP W-C TABLET PO SCH (15:51)
[2018-12-05] MEDS: AMLODIPINE 2.5MG TABLET PO SCH (15:52)
[2018-12-05 16:00] VITALS: BP 124/74
[2018-12-05 20:00] VITALS: BP 134/65
[2018-12-06] VITALS: BP 112/68
[2018-12-06 04:00] VITALS: BP 107/74
[2018-12-06] MEDS: INSULIN LISPRO 100 UNITS/ML SUBCUT SCH ×4 (05:50→21:00)
[2018-12-06] MEDS: BLOOD SUGAR DIAGNOSTIC STRIP TEST SCH ×4 (05:50→21:00)
[2018-12-06] MEDS: CALCIUM ACETATE 667MG CAPSULE PO SCH ×3 (07:40→17:21)
[2018-12-06 08:11] VITALS: BP 104/66
[2018-12-06] MEDS: AMLODIPINE 2.5MG TABLET PO SCH (08:15)
[2018-12-06] MEDS: FOLIC ACID/VITAMIN B COMP W-C TABLET PO SCH (08:24)
[2018-12-06 12:00] VITALS: BP 135/88
[2018-12-06] MEDS: DILTIAZEM HCL 30MG TABLET PO SCH ×2 (14:03→21:10)
[2018-12-06 16:00] VITALS: BP_SYST 122; BP_SYST 87; BP_DIAS 41; BP_DIAS 78
[2018-12-06] MEDS: ENOXAPARIN 30MG/0.3ML SYR SUBCUT SCH (16:21)
[2018-12-06] MEDS: GUAIFENESIN-DM 200MG-20MG/10ML UDC PO PRN (16:24)
[2018-12-06] MEDS: MAGNESIUM/ALUMINUM HYDROXIDE/SIMETHICONE 30ML UDC PO PRN (18:26)
[2018-12-06 20:00] VITALS: BP 137/91
[2018-12-07] VITALS: BP 141/96
[2018-12-07 04:00] VITALS: BP 144/95
[2018-12-07] MEDS: GUAIFENESIN-DM 200MG-20MG/10ML UDC PO PRN ×2 (04:09→18:50)
[2018-12-07] MEDS: BLOOD SUGAR DIAGNOSTIC STRIP TEST SCH ×4 (05:39→20:19)
[2018-12-07] MEDS: INSULIN LISPRO 100 UNITS/ML SUBCUT SCH ×4 (05:39→20:19)
[2018-12-07] MEDS: DILTIAZEM HCL 30MG TABLET PO SCH ×3 (06:00→21:33)
[2018-12-07] MEDS: OMEPRAZOLE 20MG CAPSULE EXTENDED RELEASE PO SCH (06:41)
[2018-12-07] MEDS: CALCIUM ACETATE 667MG CAPSULE PO SCH ×3 (07:40→16:29)
[2018-12-07 08:21] VITALS: BP 149/94
[2018-12-07] MEDS: FOLIC ACID/VITAMIN B COMP W-C TABLET PO SCH (08:32)
[2018-12-07] MEDS: ASPIRIN 81MG TABLET PO SCH (08:32)
[2018-12-07 12:00] VITALS: BP 135/94
[2018-12-07] MEDS: ENOXAPARIN 30MG/0.3ML SYR SUBCUT SCH (15:55)
[2018-12-07 16:00] VITALS: BP 143/91
[2018-12-07] MEDS ORDERED: LACTULOSE 20G/30ML UDC PO PRN (16:00)
[2018-12-07] MEDS: DOCUSATE SODIUM 250MG CAPSULE PO SCH (16:32)
[2018-12-07 20:00] VITALS: BP 136/86
[2018-12-08 00:04] VITALS: BP 131/80
[2018-12-08 04:00] VITALS: BP 135/92
[2018-12-08] MEDS: BLOOD SUGAR DIAGNOSTIC STRIP TEST SCH ×4 (05:56→21:08)
[2018-12-08] MEDS: DILTIAZEM HCL 30MG TABLET PO SCH (05:58)
[2018-12-08] MEDS: INSULIN LISPRO 100 UNITS/ML SUBCUT SCH ×4 (05:58→21:00)
[2018-12-08] MEDS: OMEPRAZOLE 20MG CAPSULE EXTENDED RELEASE PO SCH (06:00)
[2018-12-08 06:58] LABS: BASOPHILS % 0.6 % (0.0-2.0); EOSINOPHILS % 3.6 % (0.0-5.0); HEMATOCRIT. 37.7 % (36.0-48.0); HEMOGLOBIN. 11.5 g/dL (12.0-16.0); LYMPHOCYTES % 33.2 % (20.0-50.0); MEAN CORPUSCULAR HEMOGLOBIN 23.9 pg (28.0-32.0); MEAN CORPUSCULAR VOLUME 78.2 fL (81.0-99.0); MEAN PLATELET VOLUME 7.9 fl (7.4-10.4); MONOCYTES % 10.6 % (2.0-8.0); PLATELET 191 x1000/uL (130-400); RED BLOOD CELL COUNT 4.82 mill/uL (4.2-5.4); RED CELL DISTRIBUTION WIDTH 17.9 % (11.6-14.6)
[2018-12-08] MEDS: CALCIUM ACETATE 667MG CAPSULE PO SCH ×3 (07:40→21:30)
[2018-12-08 08:00] VITALS: BP 159/96
[2018-12-08] MEDS: ASPIRIN 81MG TABLET PO SCH (09:00)
[2018-12-08] MEDS: FOLIC ACID/VITAMIN B COMP W-C TABLET PO SCH (09:00)
[2018-12-08] MEDS: DOCUSATE SODIUM 250MG CAPSULE PO SCH ×3 (09:00→21:34)
[2018-12-08] MEDS: AMLODIPINE 2.5MG TABLET PO SCH ×2 (13:32→21:00)
[2018-12-08 16:00] VITALS: BP 140/68
[2018-12-08] MEDS: ENOXAPARIN 30MG/0.3ML SYR SUBCUT SCH (16:30)
[2018-12-08 20:00] VITALS: BP 102/58
[2018-12-08] MEDS: ACETAMINOPHEN 325MG TABLET PO PRN (23:30)
[2018-12-09 05:00] VITALS: BP 107/56
[2018-12-09] MEDS: MAGNESIUM/ALUMINUM HYDROXIDE/SIMETHICONE 30ML UDC PO PRN (06:26)
[2018-12-09] MEDS: OMEPRAZOLE 20MG CAPSULE EXTENDED RELEASE PO SCH (06:26)
[2018-12-09] MEDS: INSULIN LISPRO 100 UNITS/ML SUBCUT SCH ×2 (06:27→12:40)
[2018-12-09] MEDS: BLOOD SUGAR DIAGNOSTIC STRIP TEST SCH ×2 (06:27→13:05)
[2018-12-09 08:00] VITALS: BP 106/77
[2018-12-09] MEDS: CALCIUM ACETATE 667MG CAPSULE PO SCH ×2 (08:32→12:40)
[2018-12-09] MEDS: AMLODIPINE 2.5MG TABLET PO SCH (09:00)
[2018-12-09] MEDS: DOCUSATE SODIUM 250MG CAPSULE PO SCH (09:00)
[2018-12-09] MEDS: ASPIRIN 81MG TABLET PO SCH (09:27)
[2018-12-09] MEDS: ACETAMINOPHEN 325MG TABLET PO PRN (09:27)
[2018-12-09] MEDS: FOLIC ACID/VITAMIN B COMP W-C TABLET PO SCH (09:30)
[2018-12-09 12:00] VITALS: BP 147/118
[2018-12-09 15:30] VITALS: BP 135/76
[2018-12-09] MEDS ORDERED: HYDROCODONE/ACETAMINOPHEN 5/325MG TABLET PO PRN (15:30)
[2018-12-09 16:00] VITALS: BP 163/76
[2018-12-10] MEDS ORDERED: FAMOTIDINE 20MG TABLET PO SCH (09:00)
== END 2018-12-09 16:30 | DRG 201 ==
LOC: ER 16:22 → 8WST 19:10 → ENRESERV 20:17
PROVIDERS: ADMIT Internal Medicine; ATTEND Internal Medicine
PROC: 5A1D70Z Performance of Urinary Filtration, Intermittent, Less than 6 Hours Per Day (ICD-10-PCS; principal; 2018-12-05)
PROC: 5A1D70Z Performance of Urinary Filtration, Intermittent, Less than 6 Hours Per Day (ICD-10-PCS; 2018-12-08)
DX: I48.1 Persistent atrial fibrillation (principal); I13.2 Hypertensive heart and chronic kidney disease with heart failure and with stage 5 chronic kidney disease, or end stage renal disease; E44.0 Moderate protein-calorie malnutrition; I95.9 Hypotension, unspecified; E11.22 Type 2 diabetes mellitus with diabetic chronic kidney disease; E11.51 Type 2 diabetes mellitus with diabetic peripheral angiopathy without gangrene; I50.9 Heart failure, unspecified; N18.6 End stage renal disease; E87.6 Hypokalemia; E66.9 Obesity, unspecified; D63.8 Anemia in other chronic diseases classified elsewhere; K57.90 Diverticulosis of intestine, part unspecified, without perforation or abscess without bleeding; E78.5 Hyperlipidemia, unspecified; J44.9 Chronic obstructive pulmonary disease, unspecified; H54.7 Unspecified visual loss; I25.10 Atherosclerotic heart disease of native coronary artery without angina pectoris; I82.501 Chronic embolism and thrombosis of unspecified deep veins of right lower extremity; Z79.4 Long term (current) use of insulin; Z79.82 Long term (current) use of aspirin; Z87.891 Personal history of nicotine dependence; Z88.0 Allergy status to penicillin; Z99.2 Dependence on renal dialysis; Z88.1 Allergy status to other antibiotic agents; Z79.899 Other long term (current) drug therapy; Z89.511 Acquired absence of right leg below knee; Z68.30 Body mass index [BMI] 30.0-30.9, adult
CPT/HCPCS: 36415; 71045; 80048; 82962; 83735; 84484; 93005; 93970; 96360; 99285; J1650; J1815; J3490; J7030

== ENCOUNTER 2018-12-16 11:47 | Inpatient (IN) | payer MEDICAID ==
[~2018-12-16] VITALS: Ht 160 cm; Wt 73.7 kg
[~2018-12-16 11:47] MED LIST changes: -ASPI-1158 PO; -ATOR20TA PO; +DOCU-138 PO; -ENAL5TAB PO
[2018-12-16] MEDS ORDERED: ASPIRIN 81MG TABLET PO ONE (12:15)
[2018-12-16 13:08] LABS: LYMPHOCYTES % 36.3 % (20.0-50.0); MEAN CORPUSCULAR HEMOGLOBIN 23.2 pg (28.0-32.0); MEAN CORPUSCULAR VOLUME 77.5 fL (81.0-99.0); MEAN PLATELET VOLUME 7.8 fl (7.4-10.4); MONOCYTES % 7.9 % (2.0-8.0); NEUTROPHILS % 52.8 % (40.0-76.0); PLATELET 273 x1000/uL (130-400); RED BLOOD CELL COUNT 4.77 mill/uL (4.2-5.4); RED CELL DISTRIBUTION WIDTH 17.1 % (11.6-14.6)
[2018-12-16 13:10] LABS: CHLORIDE 108 mEq/L (98-107)
[2018-12-16 13:22] LABS: INR 1.1; PROTHROMBIN TIME 10.6 sec (9.1-11.1)
[2018-12-16] MEDS ORDERED: DEXTROSE 50% WATER 50ML SYRINGE IV ONE (13:30)
[2018-12-16] MEDS ORDERED: INSULIN REGULAR (HUMULIN R) 300UNITS/3ML IV ONE (13:30)
[2018-12-16] MEDS ORDERED: CALCIUM GLUCONATE 100MG/ML 10ML VIAL IV ONE (13:30)
[2018-12-16] MEDS ORDERED: SODIUM BICARBONATE 8.4% 1 MEQ/ML 50ML SYR IV ONE (13:30)
[2018-12-16] MEDS ORDERED: SODIUM POLYSTYRENE SULFONATE 15 G/60 ML BOT PO ONE (13:30)
[2018-12-16] MEDS ORDERED: ALBUTEROL (0.083%) 2.5MG/3ML NEB HHN ONE (13:30)
[2018-12-16] MEDS ORDERED: HYDROCODONE/ACETAMINOPHEN 5/325MG TABLET PO PRN (15:30)
[2018-12-16] MEDS ORDERED: ONDANSETRON HCL 4MG/2ML INJ IV PRN (15:30)
[2018-12-16] MEDS ORDERED: IPRATROPIUM/ALBUTEROL 0.5-3(2.5)MG/3ML NEB INH PRN (15:30)
[2018-12-16] MEDS ORDERED: DIPHENHYDRAMINE 50MG/ML VIAL IV PRN (15:30)
[2018-12-16] MEDS ORDERED: GUAIFENESIN 200MG/10ML SUGAR FREE UDC PO PRN (15:30)
[2018-12-16] MEDS ORDERED: ACETAMINOPHEN 325MG TABLET PO PRN (15:30)
[2018-12-16] MEDS ORDERED: DOCUSATE SODIUM 100MG CAPSULE PO PRN (15:30)
[2018-12-16 20:00] VITALS: BP_SYST 135; BP_SYST 138; BP_DIAS 68
[2018-12-16 22:00] VITALS: BP 128/69
[2018-12-17 00:07] LABS: PHOSPHORUS 4.1 mg/dL (2.5-4.9)
[2018-12-17] MEDS ORDERED: AMLODIPINE 2.5MG TABLET PO SCH (11:15)
[2018-12-17 12:47] VITALS: BP 128/69
== END 2018-12-17 15:05 | DRG 425 ==
LOC: ER 11:50 → 3WST 13:52 → ENRESERV 18:47
PROVIDERS: ADMIT Internal Medicine; ATTEND Internal Medicine
PROC: 5A1D70Z Performance of Urinary Filtration, Intermittent, Less than 6 Hours Per Day (ICD-10-PCS; principal; 2018-12-16)
DX: E87.5 Hyperkalemia (principal); I13.2 Hypertensive heart and chronic kidney disease with heart failure and with stage 5 chronic kidney disease, or end stage renal disease; E11.22 Type 2 diabetes mellitus with diabetic chronic kidney disease; E11.51 Type 2 diabetes mellitus with diabetic peripheral angiopathy without gangrene; I48.0 Paroxysmal atrial fibrillation; N18.6 End stage renal disease; E83.41 Hypermagnesemia; E83.42 Hypomagnesemia; H54.7 Unspecified visual loss; E87.6 Hypokalemia; E83.51 Hypocalcemia; I50.20 Unspecified systolic (congestive) heart failure; D63.8 Anemia in other chronic diseases classified elsewhere; I82.501 Chronic embolism and thrombosis of unspecified deep veins of right lower extremity; E78.00 Pure hypercholesterolemia, unspecified; J44.9 Chronic obstructive pulmonary disease, unspecified; Z79.4 Long term (current) use of insulin; Z91.19 Patient's noncompliance with other medical treatment and regimen; Z91.15 Patient's noncompliance with renal dialysis; Z89.511 Acquired absence of right leg below knee; Z99.2 Dependence on renal dialysis; Z88.8 Allergy status to other drugs, medicaments and biological substances; Z88.6 Allergy status to analgesic agent; Z88.0 Allergy status to penicillin; Z91.013 Allergy to seafood
CPT/HCPCS: 36415; 71045; 80048; 82550; 82962; 83735; 83880; 84100; 84484; 93005; 94640; 96374; 96375; 99291; J0610; J1815; J3490; J7611

== ENCOUNTER 2019-01-23 23:17 | Inpatient (IN) | payer MEDICAID ==
[~2019-01-23] VITALS: Ht 157.5 cm; Wt 59.0 kg
[2019-01-24] VITALS (13 sets, daily range): BP systolic 102–160; BP diastolic 61–97
[2019-01-24 05:02] LABS: BASOPHILS % 1.3 % (0.0-2.0); EOSINOPHILS % 2.1 % (0.0-5.0); HEMATOCRIT. 43.6 % (36.0-48.0); HEMOGLOBIN. 13.4 g/dL (12.0-16.0); LYMPHOCYTES % 44.6 % (20.0-50.0); MEAN CORPUSCULAR HEMOGLOBIN 22.7 pg (28.0-32.0); MEAN CORPUSCULAR VOLUME 73.6 fL (81.0-99.0); MONOCYTES % 9.5 % (2.0-8.0); NEUTROPHILS % 42.5 % (40.0-76.0); RED BLOOD CELL COUNT 5.92 mill/uL (4.2-5.4)
[2019-01-24 05:08] LABS: CHLORIDE 110 mEq/L (98-107)
[2019-01-24 05:18] LABS: PROTHROMBIN TIME 10.1 sec (9.1-11.1)
[2019-01-24 05:21] LABS: MEAN PLATELET VOLUME 8.8 fl (7.4-10.4); PLATELET 119 x1000/uL (130-400)
[2019-01-24] MEDS: SODIUM POLYSTYRENE SULFONATE 15 G/60 ML BOT PO ONE ×2 (06:30→06:42)
[2019-01-24] MEDS ORDERED: ACETAMINOPHEN 325MG TABLET PO PRN ×2 (07:00→09:30)
[2019-01-24] MEDS ORDERED: DEXTROSE 50% WATER 50ML SYRINGE IV NR (11:00)
[2019-01-24] MEDS ORDERED: SODIUM BICARBONATE 8.4% 1 MEQ/ML 50ML SYR IV NR (11:00)
[2019-01-24] MEDS ORDERED: INSULIN REGULAR (HUMULIN R) 300UNITS/3ML IV NR (11:00)
[2019-01-24] MEDS ORDERED: ALBUTEROL (0.083%) 2.5MG/3ML NEB HHN NR (14:00)
[2019-01-24] MEDS: HYDRALAZINE HCL 100MG TABLET PO SCH ×2 (14:30→21:22)
[2019-01-24] MEDS ORDERED: HYDRALAZINE 20MG/ML VIAL IV PRN (16:30)
[2019-01-24] MEDS ORDERED: AMLODIPINE 5MG TABLET PO SCH (17:00)
[2019-01-24] MEDS ORDERED: CALCIUM GLUCONATE 100MG/ML 10ML VIAL IV NR (17:15)
[2019-01-24] MEDS ORDERED: CALCIUM CHLORIDE 1GM/10ML SYR IV ONE (17:35)
[2019-01-24] MEDS ORDERED: INSULIN REGULAR (HUMULIN R) 300UNITS/3ML IV ONE ×2 (17:45→19:00)
[2019-01-24] MEDS ORDERED: DEXTROSE 50% WATER 50ML SYRINGE IV ONE ×2 (17:45→19:00)
[2019-01-24] MEDS ORDERED: SODIUM BICARBONATE 8.4% 1 MEQ/ML 50ML SYR IV ONE (19:00)
[2019-01-24] MEDS ORDERED: CALCIUM GLUCONATE 1,000 MG in DEXTROSE 5% WATER 50 ML IV ONE (19:00)
[2019-01-24] MEDS ORDERED: SODIUM POLYSTYRENE SULFONATE 15 G/60 ML BOT PO ONE (19:00)
[2019-01-24] MEDS ORDERED: ALBUTEROL (0.083%) 2.5MG/3ML NEB HHN ONE (19:00)
[2019-01-24] MEDS ORDERED: SODIUM POLYSTYRENE SULFONATE 15 G/60 ML BOT PO NR (21:00)
[2019-01-24] MEDS: ENOXAPARIN 30MG/0.3ML SYR SUBCUT SCH (21:21)
[2019-01-24] MEDS: AMLODIPINE 5MG TABLET PO SCH (21:21)
[2019-01-25] VITALS (14 sets, daily range): BP systolic 80–155; BP diastolic 46–80
[2019-01-25] MEDS: HYDRALAZINE HCL 50MG TABLET PO SCH ×3 (05:55→20:40)
[2019-01-25 08:39] LABS: CREATINE KINASE MB FRACTION 1.5 ng/mL (0.5-3.6)
[2019-01-25 09:44] LABS: BASOPHILS % 0.9 % (0.0-2.0); HEMOGLOBIN. 13.4 g/dL (12.0-16.0); LYMPHOCYTES % 28.7 % (20.0-50.0); MEAN CORPUSCULAR HEMOGLOBIN 22.8 pg (28.0-32.0); MEAN CORPUSCULAR VOLUME 73.2 fL (81.0-99.0); MEAN PLATELET VOLUME 8.8 fl (7.4-10.4); MONOCYTES % 10.3 % (2.0-8.0); NEUTROPHILS % 59.1 % (40.0-76.0); PLATELET 212 x1000/uL (130-400); RED BLOOD CELL COUNT 5.87 mill/uL (4.2-5.4); RED CELL DISTRIBUTION WIDTH 17.7 % (11.6-14.6)
[2019-01-25] MEDS: ONDANSETRON HCL 4MG/2ML INJ IV PRN ×3 (10:39→20:39)
[2019-01-25] MEDS: AMLODIPINE 5MG TABLET PO SCH ×2 (15:23→20:40)
[2019-01-25] MEDS ORDERED: MAGNESIUM/ALUMINUM HYDROXIDE/SIMETHICONE 30ML UDC PO PRN (16:00)
[2019-01-25] MEDS: OMEPRAZOLE 20MG CAPSULE EXTENDED RELEASE PO SCH (16:24)
[2019-01-25] MEDS ORDERED: DEXTROSE 50% WATER 50ML SYRINGE IV PRN (20:00)
[2019-01-25] MEDS: ENOXAPARIN 30MG/0.3ML SYR SUBCUT SCH (20:40)
[2019-01-25] MEDS: INSULIN LISPRO 100 UNITS/ML SUBCUT SCH (21:00)
[2019-01-25] MEDS: BLOOD SUGAR DIAGNOSTIC STRIP TEST SCH (21:24)
[2019-01-26] VITALS (7 sets, daily range): BP systolic 105–139; BP diastolic 47–72
[2019-01-26] MEDS: HYDRALAZINE HCL 50MG TABLET PO SCH ×2 (04:43→14:00)
[2019-01-26] MEDS: BLOOD SUGAR DIAGNOSTIC STRIP TEST SCH ×3 (04:45→17:40)
[2019-01-26] MEDS: INSULIN LISPRO 100 UNITS/ML SUBCUT SCH ×3 (08:10→18:10)
[2019-01-26] MEDS: AMLODIPINE 5MG TABLET PO SCH (09:00)
[2019-01-26] MEDS: OMEPRAZOLE 20MG CAPSULE EXTENDED RELEASE PO SCH (09:33)
[2019-01-26] MEDS ORDERED: OMEP20CA10 PO (13:35)
[2019-01-26] MEDS ORDERED: AMLO5TAB88 PO (13:35)
[2019-01-26] MEDS ORDERED: HYDR-4135 PO (13:35)
[2019-01-26 15:09] LABS: BASOPHILS % 0.8 % (0.0-2.0); EOSINOPHILS % 3.8 % (0.0-5.0); LYMPHOCYTES % 45.9 % (20.0-50.0); MEAN CORPUSCULAR HEMOGLOBIN 22.6 pg (28.0-32.0); MEAN CORPUSCULAR VOLUME 73.6 fL (81.0-99.0); MEAN PLATELET VOLUME 8.6 fl (7.4-10.4); MONOCYTES % 10.9 % (2.0-8.0); NEUTROPHILS % 38.6 % (40.0-76.0); PLATELET 189 x1000/uL (130-400); RED BLOOD CELL COUNT 5.29 mill/uL (4.2-5.4); RED CELL DISTRIBUTION WIDTH 17.5 % (11.6-14.6)
== END 2019-01-26 21:00 | DRG 425 ==
LOC: ER 23:41 → MICUSO 01-24 06:51 → EDBEDREQSVC 01-24 09:28 → ENRESERV 01-24 18:28 → 7WST 01-25 16:45
PROVIDERS: ADMIT Internal Medicine; ATTEND Internal Medicine
PROC: 5A1D70Z Performance of Urinary Filtration, Intermittent, Less than 6 Hours Per Day (ICD-10-PCS; 2019-01-24)
PROC: 5A1D70Z Performance of Urinary Filtration, Intermittent, Less than 6 Hours Per Day (ICD-10-PCS; principal; 2019-01-26)
DX: E87.5 Hyperkalemia (principal); I13.2 Hypertensive heart and chronic kidney disease with heart failure and with stage 5 chronic kidney disease, or end stage renal disease; E87.2 Acidosis; E11.22 Type 2 diabetes mellitus with diabetic chronic kidney disease; E11.51 Type 2 diabetes mellitus with diabetic peripheral angiopathy without gangrene; E44.1 Mild protein-calorie malnutrition; I27.20 Pulmonary hypertension, unspecified; I10 Essential (primary) hypertension; N18.6 End stage renal disease; I48.0 Paroxysmal atrial fibrillation; I50.9 Heart failure, unspecified; R00.1 Bradycardia, unspecified; J44.9 Chronic obstructive pulmonary disease, unspecified; H54.8 Legal blindness, as defined in USA; I25.10 Atherosclerotic heart disease of native coronary artery without angina pectoris; Z99.2 Dependence on renal dialysis; Z91.15 Patient's noncompliance with renal dialysis; Z89.511 Acquired absence of right leg below knee; Z88.0 Allergy status to penicillin; Z88.1 Allergy status to other antibiotic agents; Z68.23 Body mass index [BMI] 23.0-23.9, adult; Z91.013 Allergy to seafood; Z79.899 Other long term (current) drug therapy
CPT/HCPCS: 36415; 71045; 80048; 82550; 82553; 82962; 83735; 84132; 84484; 93005; 96374; 96375; 96376; 99285; A6261; J0610; J1650; J1815; J2405; J3490; J7060; J7611

== ENCOUNTER 2019-04-09 21:51 | Inpatient (IN) | payer MEDICAID ==
[~2019-04-09] VITALS: Ht 160 cm; Wt 77.1 kg
[~2019-04-09 21:51] MED LIST changes: +AMLO5TAB88 PO; -FERR-63 PO; +HYDR-4135 PO; +OMEP20CA5 PO
[2019-04-09] MEDS ORDERED: ASPIRIN 325MG EC TABLET PO ONE (22:45)
[2019-04-09] MEDS ORDERED: CALCIUM GLUCONATE 100MG/ML 10ML VIAL IV ONE (23:00)
[2019-04-09 23:15] LABS: HEMATOCRIT. 30.5 % (36.0-48.0); HEMOGLOBIN. 9.8 g/dL (12.0-16.0); MEAN CORPUSCULAR HEMOGLOBIN 22.3 pg (28.0-32.0); MEAN CORPUSCULAR VOLUME 69.3 fL (81.0-99.0); MEAN PLATELET VOLUME 8.4 fl (7.4-10.4); PLATELET 201 x1000/uL (130-400); RED CELL DISTRIBUTION WIDTH 19.9 % (11.6-14.6)
[2019-04-09 23:16] LABS: CHLORIDE 103 mEq/L (98-107)
[2019-04-09 23:24] LABS: PLATELET ESTIMATE NORMAL
[2019-04-10] MEDS ORDERED: SODIUM BICARBONATE 8.4% 1 MEQ/ML 50ML SYR IV NR (00:45)
[2019-04-10] MEDS ORDERED: INSULIN REGULAR (HUMULIN R) 300UNITS/3ML IV NR (00:45)
[2019-04-10] MEDS ORDERED: DEXTROSE 50% WATER 50ML SYRINGE IV NR (00:45)
[2019-04-10] MEDS ORDERED: DEXTROSE 50% WATER 50ML SYRINGE IV ONE (03:15)
[2019-04-10 05:01] VITALS: BP 128/48
[2019-04-10 05:44] VITALS: BP 128/48
[2019-04-10] MEDS ORDERED: CLONIDINE 0.1MG TABLET PO PRN (06:15)
[2019-04-10] MEDS ORDERED: ONDANSETRON HCL 4MG/2ML INJ IV PRN (06:15)
[2019-04-10] MEDS ORDERED: HYDRALAZINE 20MG/ML VIAL IV PRN (06:15)
[2019-04-10] MEDS ORDERED: IPRATROPIUM/ALBUTEROL 0.5-3(2.5)MG/3ML NEB INH PRN (06:15)
[2019-04-10] MEDS ORDERED: DIPHENHYDRAMINE 50MG/ML VIAL IV PRN (06:15)
[2019-04-10] MEDS ORDERED: ACETAMINOPHEN 325MG TABLET PO PRN (06:15)
[2019-04-10] MEDS ORDERED: LORAZEPAM 2MG/ML CPJ IV PRN (06:15)
[2019-04-10] MEDS ORDERED: MAGNESIUM/ALUMINUM HYDROXIDE/SIMETHICONE 30ML UDC PO PRN (06:15)
[2019-04-10] MEDS ORDERED: HYDROMORPHONE HCL/PF 2MG/ML CPJ IV PRN (06:15)
[2019-04-10] MEDS ORDERED: GUAIFENESIN 200MG/10ML SUGAR FREE UDC PO PRN (06:15)
[2019-04-10] MEDS ORDERED: DEXTROSE 50% WATER 50ML SYRINGE IV PRN (06:15)
[2019-04-10] MEDS: BLOOD SUGAR DIAGNOSTIC STRIP TEST SCH ×4 (07:10→21:30)
[2019-04-10] MEDS: INSULIN LISPRO 100 UNITS/ML SUBCUT SCH ×4 (07:40→21:00)
[2019-04-10 08:00] VITALS: BP 152/56
[2019-04-10] MEDS: ASPIRIN 81MG EC TABLET PO SCH (09:00)
[2019-04-10] MEDS: ENOXAPARIN 30MG/0.3ML SYR SUBCUT SCH (09:00)
[2019-04-10 12:00] VITALS: BP 137/55
[2019-04-10] MEDS: SODIUM CHLORIDE 0.9% INJ 3ML FLUSH IVF SCH ×2 (15:57→21:30)
[2019-04-10 16:00] VITALS: BP 173/52
[2019-04-10 16:58] LABS: CREATINE KINASE 41 IU/L (26-192)
[2019-04-10 16:59] LABS: CREATINE KINASE MB FRACTION < 1.0 ng/mL (0.5-3.6)
[2019-04-10 20:00] VITALS: BP 175/80
[2019-04-11] VITALS (7 sets, daily range): BP systolic 109–152; BP diastolic 53–68
[2019-04-11] MEDS: SODIUM CHLORIDE 0.9% INJ 3ML FLUSH IVF SCH ×3 (06:00→21:32)
[2019-04-11] MEDS: INSULIN LISPRO 100 UNITS/ML SUBCUT SCH ×4 (06:49→21:00)
[2019-04-11] MEDS: BLOOD SUGAR DIAGNOSTIC STRIP TEST SCH ×4 (06:49→21:00)
[2019-04-11] MEDS: ENOXAPARIN 30MG/0.3ML SYR SUBCUT SCH (08:42)
[2019-04-11 08:56] LABS: HEMOGLOBIN. 9.8 g/dL (12.0-16.0); MEAN CORPUSCULAR HEMOGLOBIN 21.9 pg (28.0-32.0); MEAN CORPUSCULAR VOLUME 69.2 fL (81.0-99.0); MEAN PLATELET VOLUME 8.4 fl (7.4-10.4); PLATELET 188 x1000/uL (130-400); RED BLOOD CELL COUNT 4.48 mill/uL (4.2-5.4); RED CELL DISTRIBUTION WIDTH 19.9 % (11.6-14.6)
[2019-04-11] MEDS: ASPIRIN 81MG EC TABLET PO SCH (09:01)
[2019-04-11 09:29] LABS: CHLORIDE 106 mEq/L (98-107)
[2019-04-11 09:35] LABS: LDL CHOLESTEROL 52 mg/dL (5-100)
[2019-04-11 09:36] LABS: CREATINE KINASE 37 IU/L (26-192); CREATINE KINASE MB FRACTION < 1.0 ng/mL (0.5-3.6); HDL CHOLESTEROL 46 mg/dL (40-59); T4 FREE 0.88 ng/dL (0.76-1.46)
[2019-04-11 12:00] LABS: PLATELET ESTIMATE NORMAL
[2019-04-12] VITALS: BP 146/59
[2019-04-12 04:00] VITALS: BP 145/62
[2019-04-12] MEDS: SODIUM CHLORIDE 0.9% INJ 3ML FLUSH IVF SCH ×3 (06:41→21:13)
[2019-04-12] MEDS: INSULIN LISPRO 100 UNITS/ML SUBCUT SCH ×4 (06:41→21:00)
[2019-04-12] MEDS: BLOOD SUGAR DIAGNOSTIC STRIP TEST SCH ×4 (06:41→21:13)
[2019-04-12 08:00] VITALS: BP 122/47
[2019-04-12] MEDS: ASPIRIN 81MG EC TABLET PO SCH (09:00)
[2019-04-12] MEDS: ENOXAPARIN 30MG/0.3ML SYR SUBCUT SCH (09:00)
[2019-04-12 12:00] VITALS: BP 110/46
[2019-04-12 16:48] VITALS: BP 109/50
[2019-04-12 20:00] VITALS: BP 134/50
[2019-04-13] VITALS: BP 165/64
[2019-04-13 04:00] VITALS: BP 147/50
[2019-04-13] MEDS: DOCUSATE SODIUM 100MG CAPSULE PO PRN ×2 (04:56→13:10)
[2019-04-13] MEDS: SODIUM CHLORIDE 0.9% INJ 3ML FLUSH IVF SCH ×3 (06:07→21:31)
[2019-04-13] MEDS: BLOOD SUGAR DIAGNOSTIC STRIP TEST SCH ×4 (06:45→21:22)
[2019-04-13] MEDS: INSULIN LISPRO 100 UNITS/ML SUBCUT SCH ×4 (06:45→21:00)
[2019-04-13 08:00] VITALS: BP 160/60
[2019-04-13] MEDS: ENOXAPARIN 30MG/0.3ML SYR SUBCUT SCH ×2 (08:13→08:19)
[2019-04-13] MEDS: ASPIRIN 81MG EC TABLET PO SCH (08:13)
[2019-04-13 09:38] LABS: BASOPHILS % 0.5 % (0.0-2.0); EOSINOPHILS % 3.7 % (0.0-5.0); HEMATOCRIT. 32.7 % (36.0-48.0); HEMOGLOBIN. 10.2 g/dL (12.0-16.0); LYMPHOCYTES % 41.7 % (20.0-50.0); MEAN CORPUSCULAR HEMOGLOBIN 21.9 pg (28.0-32.0); MEAN CORPUSCULAR VOLUME 70.3 fL (81.0-99.0); MEAN PLATELET VOLUME 8.4 fl (7.4-10.4); MONOCYTES % 10.7 % (2.0-8.0); NEUTROPHILS % 43.4 % (40.0-76.0); PLATELET 196 x1000/uL (130-400); RED BLOOD CELL COUNT 4.66 mill/uL (4.2-5.4); RED CELL DISTRIBUTION WIDTH 20.4 % (11.6-14.6)
[2019-04-13] MEDS ORDERED: SODIUM POLYSTYRENE SULFONATE 15 G/60 ML BOT PO NR (12:00)
[2019-04-13] MEDS: METOCLOPRAMIDE HCL 10MG TABLET PO PRN (17:07)
[2019-04-13 20:00] VITALS: BP 160/78
[2019-04-13] MEDS: HYDROCODONE/ACETAMINOPHEN 10/325MG TABLET PO PRN (21:27)
[2019-04-14] VITALS (8 sets, daily range): BP systolic 148–195; BP diastolic 63–95
[2019-04-14] MEDS: HYDROCODONE/ACETAMINOPHEN 10/325MG TABLET PO PRN (01:58)
[2019-04-14] MEDS: SODIUM CHLORIDE 0.9% INJ 3ML FLUSH IVF SCH ×2 (06:00→13:52)
[2019-04-14 06:15] LABS: HEMATOCRIT. 32.1 % (36.0-48.0); HEMOGLOBIN. 10.3 g/dL (12.0-16.0); MEAN CORPUSCULAR HEMOGLOBIN 22.2 pg (28.0-32.0); MEAN CORPUSCULAR VOLUME 69.6 fL (81.0-99.0); MEAN PLATELET VOLUME 8.7 fl (7.4-10.4); PLATELET 189 x1000/uL (130-400); RED BLOOD CELL COUNT 4.61 mill/uL (4.2-5.4); RED CELL DISTRIBUTION WIDTH 19.8 % (11.6-14.6)
[2019-04-14] MEDS: INSULIN LISPRO 100 UNITS/ML SUBCUT SCH ×4 (06:43→20:30)
[2019-04-14] MEDS: BLOOD SUGAR DIAGNOSTIC STRIP TEST SCH ×4 (06:43→20:31)
[2019-04-14] MEDS: METOCLOPRAMIDE HCL 10MG TABLET PO PRN (06:44)
[2019-04-14] MEDS: ASPIRIN 81MG EC TABLET PO SCH (08:42)
[2019-04-14] MEDS: ENOXAPARIN 30MG/0.3ML SYR SUBCUT SCH (08:43)
[2019-04-14 13:54] LABS: PLATELET ESTIMATE NORMAL
[2019-04-14] MEDS ORDERED: CLONIDINE 0.3MG TABLET PO PRN (17:08)
== END 2019-04-14 20:55 | DRG 243 ==
LOC: ER 21:51 → 8WST 04-10 01:08 → EDBEDREQ 04-10 01:10 → EDBEDREQTM 04-10 01:10 → ENRESERV 04-10 02:32
PROVIDERS: ADMIT Internal Medicine; ATTEND Internal Medicine
PROC: 5A1D70Z Performance of Urinary Filtration, Intermittent, Less than 6 Hours Per Day (ICD-10-PCS; principal; 2019-04-10)
PROC: 5A1D70Z Performance of Urinary Filtration, Intermittent, Less than 6 Hours Per Day (ICD-10-PCS; 2019-04-12)
PROC: 5A1D70Z Performance of Urinary Filtration, Intermittent, Less than 6 Hours Per Day (ICD-10-PCS; 2019-04-14)
DX: K21.9 Gastro-esophageal reflux disease without esophagitis (principal); E46 Unspecified protein-calorie malnutrition; E11.22 Type 2 diabetes mellitus with diabetic chronic kidney disease; E11.319 Type 2 diabetes mellitus with unspecified diabetic retinopathy without macular edema; I49.5 Sick sinus syndrome; E11.39 Type 2 diabetes mellitus with other diabetic ophthalmic complication; E11.51 Type 2 diabetes mellitus with diabetic peripheral angiopathy without gangrene; E11.649 Type 2 diabetes mellitus with hypoglycemia without coma; I48.0 Paroxysmal atrial fibrillation; E87.5 Hyperkalemia; I12.0 Hypertensive chronic kidney disease with stage 5 chronic kidney disease or end stage renal disease; R07.9 Chest pain, unspecified; N18.6 End stage renal disease; D64.9 Anemia, unspecified; J44.9 Chronic obstructive pulmonary disease, unspecified; E78.5 Hyperlipidemia, unspecified; F17.200 Nicotine dependence, unspecified, uncomplicated; H40.9 Unspecified glaucoma; Z53.29 Procedure and treatment not carried out because of patient's decision for other reasons; H42 Glaucoma in diseases classified elsewhere; H54.8 Legal blindness, as defined in USA; Z79.4 Long term (current) use of insulin; Z79.899 Other long term (current) drug therapy; Z71.6 Tobacco abuse counseling; Z88.0 Allergy status to penicillin; Z99.2 Dependence on renal dialysis; Z88.1 Allergy status to other antibiotic agents; Z91.013 Allergy to seafood; Z88.8 Allergy status to other drugs, medicaments and biological substances; Z89.511 Acquired absence of right leg below knee; Z91.15 Patient's noncompliance with renal dialysis; Z91.19 Patient's noncompliance with other medical treatment and regimen; Z91.81 History of falling; Z68.30 Body mass index [BMI] 30.0-30.9, adult
CPT/HCPCS: 36415; 71045; 80048; 80051; 80061; 82550; 82553; 82962; 83735; 83880; 84439; 84443; 84484; 93005; 93306; 96374; 99285; C1893; J0360; J0610; J1200; J1650; J1815; J2405; J3490; J8597

== ENCOUNTER 2019-04-28 19:00 | Emergency (ER) | payer MEDICAID ==
[~2019-04-28] VITALS: Ht 162.6 cm; Wt 82.0 kg
[2019-04-28] MEDS ORDERED: SODIUM CHLORIDE 0.9% 500 ML IV ONE (19:15)
[2019-04-28] MEDS ORDERED: CEFTRIAXONE SODIUM 250 MG/VIAL IM ONE (19:15)
[2019-04-28 19:43] LABS: HEMATOCRIT. 28.7 % (36.0-48.0); HEMOGLOBIN. 9.1 g/dL (12.0-16.0); MEAN CORPUSCULAR HEMOGLOBIN 22.2 pg (28.0-32.0); MEAN CORPUSCULAR VOLUME 69.9 fL (81.0-99.0); MEAN PLATELET VOLUME 8.4 fl (7.4-10.4); PLATELET 171 x1000/uL (130-400); RED BLOOD CELL COUNT 4.11 mill/uL (4.2-5.4)
[2019-04-28 19:49] LABS: CHLORIDE 100 mEq/L (98-107)
[2019-04-28 20:01] LABS: PLATELET ESTIMATE NORMAL
[2019-04-28 21:35] VITALS: BP 127/61
== END 2019-04-28 23:11 ==
LOC: ER 19:00
DX: R00.1 Bradycardia, unspecified (principal); J44.9 Chronic obstructive pulmonary disease, unspecified; E11.9 Type 2 diabetes mellitus without complications; N28.9 Disorder of kidney and ureter, unspecified; I10 Essential (primary) hypertension; Z89.9 Acquired absence of limb, unspecified; Z99.2 Dependence on renal dialysis; Z88.8 Allergy status to other drugs, medicaments and biological substances; Z91.013 Allergy to seafood; Z88.0 Allergy status to penicillin; Z88.1 Allergy status to other antibiotic agents; Z79.899 Other long term (current) drug therapy
CPT/HCPCS: 36415; 71045; 80053; 83880; 84484; 85025; 93005; 99284; C1893; J7040; Z7610

== ENCOUNTER 2019-05-20 22:53 | Inpatient (IN) | payer MEDICAID ==
[~2019-05-20] VITALS: Ht 160 cm; Wt 76.2 kg
[2019-05-20] MEDS ORDERED: FUROSEMIDE 100MG/10ML VIAL IV STA (23:11)
[2019-05-20] MEDS ORDERED: INSULIN REGULAR (HUMULIN R) 300UNITS/3ML IV ONE (23:15)
[2019-05-20] MEDS ORDERED: DEXTROSE 50% WATER 50ML SYRINGE IV ONE (23:15)
[2019-05-20] MEDS ORDERED: ALBUTEROL (0.083%) 2.5MG/3ML NEB HHN ONE (23:15)
[2019-05-20] MEDS ORDERED: ASPIRIN 81MG TABLET PO ONE (23:15)
[2019-05-20] MEDS ORDERED: SODIUM BICARBONATE 8.4% 1 MEQ/ML 50ML SYR IV ONE (23:15)
[2019-05-20] MEDS ORDERED: CALCIUM CHLORIDE 1GM/10ML SYR IV ONE (23:15)
[2019-05-20 23:44] LABS: BASOPHILS % 0.6 % (0.0-2.0); EOSINOPHILS % 4.3 % (0.0-5.0); HEMATOCRIT. 30.8 % (36.0-48.0); HEMOGLOBIN. 9.8 g/dL (12.0-16.0); LYMPHOCYTES % 37.2 % (20.0-50.0); MEAN CORPUSCULAR HEMOGLOBIN 24.5 pg (28.0-32.0); MEAN CORPUSCULAR VOLUME 76.8 fL (81.0-99.0); MEAN PLATELET VOLUME 7.9 fl (7.4-10.4); MONOCYTES % 9.9 % (2.0-8.0); PLATELET 188 x1000/uL (130-400); RED BLOOD CELL COUNT 4.01 mill/uL (4.2-5.4)
[2019-05-20 23:59] LABS: CHLORIDE 109 mEq/L (98-107)
[2019-05-21 02:30] VITALS: BP 124/56
[2019-05-21 04:00] VITALS: BP 146/49
[2019-05-21] MEDS ORDERED: MONT10TA24 PO (04:57)
[2019-05-21] MEDS ORDERED: ACET-2178 PO (04:57)
[2019-05-21] MEDS ORDERED: IPRA3AMP9 HHN (04:57)
[2019-05-21] MEDS ORDERED: TRAM50TA3 PO (04:57)
[2019-05-21] MEDS ORDERED: ATOR10TA69 PO (04:57)
[2019-05-21] MEDS ORDERED: NITR1PAT64 TD (04:57)
[2019-05-21] MEDS ORDERED: METO10TA3 PO (04:57)
[2019-05-21] MEDS ORDERED: ACETAMINOPHEN 325MG TABLET PO PRN ×2 (05:45→07:00)
[2019-05-21] MEDS ORDERED: GUAIFENESIN 200MG/10ML SUGAR FREE UDC PO PRN (07:00)
[2019-05-21] MEDS ORDERED: ZOLPIDEM TARTRATE 5MG TABLET PO PRN (07:00)
[2019-05-21] MEDS ORDERED: NITROGLYCERIN 0.4MG TABLET SL SL PRN (07:00)
[2019-05-21] MEDS ORDERED: CLONIDINE 0.1MG TABLET PO PRN (07:00)
[2019-05-21] MEDS ORDERED: DIPHENHYDRAMINE 50MG/ML VIAL IV PRN (07:00)
[2019-05-21] MEDS ORDERED: METOCLOPRAMIDE HCL 10MG/2ML VIAL IV PRN (07:00)
[2019-05-21] MEDS ORDERED: DOCUSATE SODIUM 100MG CAPSULE PO PRN (07:00)
[2019-05-21] MEDS ORDERED: IPRATROPIUM/ALBUTEROL 0.5-3(2.5)MG/3ML NEB INH PRN (07:00)
[2019-05-21] MEDS ORDERED: MAGNESIUM/ALUMINUM HYDROXIDE/SIMETHICONE 30ML UDC PO PRN (07:00)
[2019-05-21] MEDS: SEVELAMER CARBONATE 800 MG TABLET PO SCH ×3 (07:50→17:50)
[2019-05-21 08:19] LABS: EOSINOPHILS % 0.7 % (0.0-5.0); HEMATOCRIT. 28.8 % (36.0-48.0); HEMOGLOBIN. 9.2 g/dL (12.0-16.0); LYMPHOCYTES % 19.6 % (20.0-50.0); MEAN CORPUSCULAR HEMOGLOBIN 24.2 pg (28.0-32.0); MEAN CORPUSCULAR VOLUME 75.9 fL (81.0-99.0); MONOCYTES % 9.2 % (2.0-8.0); NEUTROPHILS % 69.5 % (40.0-76.0); PLATELET 196 x1000/uL (130-400); RED BLOOD CELL COUNT 3.79 mill/uL (4.2-5.4); RED CELL DISTRIBUTION WIDTH 22.5 % (11.6-14.6)
[2019-05-21 08:25] VITALS: BP 129/55
[2019-05-21] MEDS: ENOXAPARIN 30MG/0.3ML SYR SUBCUT SCH (08:38)
[2019-05-21] MEDS: FOLIC ACID/VITAMIN B COMP W-C TABLET PO SCH (09:18)
[2019-05-21] MEDS: FAMOTIDINE 20MG TABLET PO SCH (09:18)
[2019-05-21] MEDS: ASPIRIN 325MG EC TABLET PO SCH (09:18)
[2019-05-21 11:50] VITALS: BP 120/48
[2019-05-21] MEDS ORDERED: SODIUM BICARBONATE 8.4% 1 MEQ/ML 50ML SYR IV SCH (12:00)
[2019-05-21] MEDS ORDERED: DEXTROSE 50% WATER 50ML SYRINGE IV SCH (12:30)
[2019-05-21] MEDS ORDERED: INSULIN REGULAR (HUMULIN R) UD 100 UNITS/ML SYR IV SCH (12:30)
[2019-05-21 13:07] LABS: PLATELET ESTIMATE NORMAL
[2019-05-21] MEDS: HYDRALAZINE HCL 50MG TABLET PO SCH ×2 (14:00→20:59)
[2019-05-21 16:07] VITALS: BP 131/59
[2019-05-21 16:27] LABS: CREATINE KINASE MB FRACTION 1.1 ng/mL (0.5-3.6)
[2019-05-21 20:00] VITALS: BP 131/56
[2019-05-22] VITALS (7 sets, daily range): BP systolic 112–159; BP diastolic 50–76
[2019-05-22] MEDS: HYDRALAZINE HCL 50MG TABLET PO SCH ×3 (06:00→21:31)
[2019-05-22] MEDS: SEVELAMER CARBONATE 800 MG TABLET PO SCH ×3 (07:50→17:50)
[2019-05-22] MEDS: ENOXAPARIN 30MG/0.3ML SYR SUBCUT SCH (09:00)
[2019-05-22] MEDS: FOLIC ACID/VITAMIN B COMP W-C TABLET PO SCH (09:00)
[2019-05-22] MEDS: ASPIRIN 325MG EC TABLET PO SCH (09:00)
[2019-05-22] MEDS: FAMOTIDINE 20MG TABLET PO SCH (09:30)
[2019-05-23 00:22] VITALS: BP 137/56
[2019-05-23 04:00] VITALS: BP 133/66
[2019-05-23] MEDS: HYDRALAZINE HCL 50MG TABLET PO SCH ×2 (06:00→13:02)
[2019-05-23 08:52] VITALS: BP 131/74
[2019-05-23] MEDS: ENOXAPARIN 30MG/0.3ML SYR SUBCUT SCH (09:00)
[2019-05-23 09:16] LABS: BASOPHILS % 0.8 % (0.0-2.0); EOSINOPHILS % 5.4 % (0.0-5.0); HEMATOCRIT. 27.6 % (36.0-48.0); HEMOGLOBIN. 8.9 g/dL (12.0-16.0); LYMPHOCYTES % 37.4 % (20.0-50.0); MEAN CORPUSCULAR HEMOGLOBIN 24.2 pg (28.0-32.0); MEAN CORPUSCULAR VOLUME 75.3 fL (81.0-99.0); MONOCYTES % 7.1 % (2.0-8.0); NEUTROPHILS % 49.3 % (40.0-76.0); PLATELET 157 x1000/uL (130-400); RED BLOOD CELL COUNT 3.66 mill/uL (4.2-5.4); RED CELL DISTRIBUTION WIDTH 20.7 % (11.6-14.6)
[2019-05-23 09:51] LABS: PHOSPHORUS 1.6 mg/dL (2.5-4.9)
[2019-05-23] MEDS: SEVELAMER CARBONATE 800 MG TABLET PO SCH ×3 (10:07→16:47)
[2019-05-23] MEDS: FAMOTIDINE 20MG TABLET PO SCH (10:07)
[2019-05-23] MEDS: ASPIRIN 325MG EC TABLET PO SCH (10:07)
[2019-05-23] MEDS: FOLIC ACID/VITAMIN B COMP W-C TABLET PO SCH (10:07)
[2019-05-23 12:32] VITALS: BP 110/63
[2019-05-23 16:06] VITALS: BP 150/75
== END 2019-05-23 18:20 | DRG 425 ==
LOC: ER 22:53 → EDBEDREQ 05-21 01:13 → EDBEDREQTM 05-21 01:13 → EDBEDREQSVC 05-21 01:13 → 6WST 05-21 01:26 → EDBEDREQ 05-21 01:37 → EDBEDREQTM 05-21 01:37 → ENRESERV 05-21 01:38
PROVIDERS: ADMIT Internal Medicine; ATTEND Internal Medicine
PROC: 5A1D70Z Performance of Urinary Filtration, Intermittent, Less than 6 Hours Per Day (ICD-10-PCS; principal; 2019-05-21)
DX: E87.5 Hyperkalemia (principal); I13.2 Hypertensive heart and chronic kidney disease with heart failure and with stage 5 chronic kidney disease, or end stage renal disease; E87.2 Acidosis; E11.51 Type 2 diabetes mellitus with diabetic peripheral angiopathy without gangrene; E44.1 Mild protein-calorie malnutrition; I50.33 Acute on chronic diastolic (congestive) heart failure; N18.6 End stage renal disease; D63.8 Anemia in other chronic diseases classified elsewhere; H54.8 Legal blindness, as defined in USA; R00.1 Bradycardia, unspecified; J44.9 Chronic obstructive pulmonary disease, unspecified; Z68.29 Body mass index [BMI] 29.0-29.9, adult; Z89.511 Acquired absence of right leg below knee; Z88.0 Allergy status to penicillin; Z88.8 Allergy status to other drugs, medicaments and biological substances; Z79.899 Other long term (current) drug therapy; Z91.15 Patient's noncompliance with renal dialysis; Z91.14 Patient's other noncompliance with medication regimen; Z91.013 Allergy to seafood; Z99.2 Dependence on renal dialysis
CPT/HCPCS: 36415; 71045; 80048; 82550; 82553; 82962; 83605; 83880; 84100; 84132; 84484; 93005; 94640; 96374; 96375; 99291; J1650; J1815; J1940; J2765; J3490; J7611; J7620

== ENCOUNTER 2019-08-12 14:16 | Inpatient (IN) | payer OTHER, MEDICAID ==
[~2019-08-12] VITALS: Ht 162.6 cm; Wt 64.9 kg
[~2019-08-12 14:16] MED LIST changes: +ATOR10TA69 PO; +IPRA3AMP9 HHN; +METO10TA3 PO; +MONT10TA24 PO; +NITR1PAT64 TD; +TOPUD PO; +TRAM50TA3 PO
[2019-08-12] MEDS ORDERED: FUROSEMIDE 100MG/10ML VIAL IV STA (14:33)
[2019-08-12] MEDS ORDERED: CALCIUM CHLORIDE 1GM/10ML SYR IV ONE (14:45)
[2019-08-12] MEDS ORDERED: DEXTROSE 50% WATER 50ML SYRINGE IV ONE (14:45)
[2019-08-12] MEDS ORDERED: INSULIN REGULAR (HUMULIN R) 300UNITS/3ML IV ONE (14:45)
[2019-08-12] MEDS ORDERED: ALBUTEROL (0.083%) 2.5MG/3ML NEB HHN ONE (14:45)
[2019-08-12] MEDS ORDERED: SODIUM BICARBONATE 8.4% 1 MEQ/ML 50ML SYR IV ONE (14:45)
[2019-08-12] MEDS ORDERED: ATROPINE SULFATE 1MG/ML VIAL IV ONE (15:00)
[2019-08-12 15:44] LABS: BASOPHILS % 1.2 % (0.0-2.0); EOSINOPHILS % 3.3 % (0.0-5.0); HEMATOCRIT. 28.6 % (36.0-48.0); LYMPHOCYTES % 48.7 % (20.0-50.0); MEAN CORPUSCULAR HEMOGLOBIN 24.2 pg (28.0-32.0); MEAN CORPUSCULAR VOLUME 77.2 fL (81.0-99.0); MEAN PLATELET VOLUME 8.2 fl (7.4-10.4); MONOCYTES % 10.3 % (2.0-8.0); NEUTROPHILS % 36.5 % (40.0-76.0); PLATELET 252 x1000/uL (130-400)
[2019-08-12 15:45] LABS: CHLORIDE 111 mEq/L (98-107)
[2019-08-12] MEDS ORDERED: ATROPINE SULFATE 1MG/10ML SYR IV NR (16:00)
[2019-08-12 21:55] VITALS: BP 141/61
[2019-08-12] MEDS ORDERED: B25 MT (22:36)
[2019-08-12] MEDS ORDERED: CLOP75TA33 MT (22:36)
[2019-08-12] MEDS ORDERED: HJ10 IJ (22:36)
[2019-08-12] MEDS ORDERED: INSLIS SUBCUT (22:37)
[2019-08-12] MEDS ORDERED: DEXTROSE 50% WATER 50ML SYRINGE IV PRN (23:15)
[2019-08-12] MEDS ORDERED: IPRATROPIUM/ALBUTEROL 0.5-3(2.5)MG/3ML NEB HHN PRN (23:30)
[2019-08-12] MEDS ORDERED: DIPHENHYDRAMINE 25MG CAPSULE PO PRN (23:30)
[2019-08-12] MEDS ORDERED: ACETAMINOPHEN 325MG TABLET PO PRN (23:30)
[2019-08-12] MEDS ORDERED: TRAMADOL 50MG TABLET PO PRN (23:30)
[2019-08-13 00:46] VITALS: BP 141/61
[2019-08-13] MEDS ORDERED: VANCOMYCIN 1 G PREMIX 200 ML IV SCH (02:00)
[2019-08-13] MEDS ORDERED: SIME125C MT ×2 (02:21→03:17)
[2019-08-13] MEDS ORDERED: MAGNESIUM/ALUMINUM HYDROXIDE/SIMETHICONE 30ML UDC PO PRN (02:30)
[2019-08-13] MEDS ORDERED: CALC300T4 MT (02:56)
[2019-08-13] MEDS ORDERED: CALCIUM CARBONATE PO SCH (03:00)
[2019-08-13] MEDS ORDERED: CALC-586 MT (03:14)
[2019-08-13] MEDS ORDERED: DIPHENHYDRAMINE 25MG CAPSULE PO PRN (03:15)
[2019-08-13] MEDS ORDERED: CALCIUM CARBONATE 500MG TABLET CHEW PO PRN (03:45)
[2019-08-13 04:00] VITALS: BP 151/57
[2019-08-13] MEDS: HYDRALAZINE HCL 50MG TABLET PO SCH ×3 (06:00→22:28)
[2019-08-13] MEDS: OMEPRAZOLE 20MG CAPSULE EXTENDED RELEASE PO SCH (06:35)
[2019-08-13] MEDS: BLOOD SUGAR DIAGNOSTIC STRIP TEST SCH ×4 (07:04→21:00)
[2019-08-13] MEDS: INSULIN LISPRO 100 UNITS/ML SUBCUT SCH ×4 (07:40→21:00)
[2019-08-13] MEDS: CALCIUM ACETATE 667MG CAPSULE PO SCH ×3 (07:40→17:13)
[2019-08-13 08:00] VITALS: BP 160/64
[2019-08-13] MEDS: AMLODIPINE 5MG TABLET PO SCH ×2 (09:00→21:00)
[2019-08-13] MEDS: DOCUSATE SODIUM 100MG CAPSULE PO SCH ×2 (09:00→17:00)
[2019-08-13] MEDS: HEPARIN 5000 UNITS/ML VIAL SUBCUT SCH ×2 (09:00→21:00)
[2019-08-13] MEDS: CLOPIDOGREL 75MG TABLET PO SCH (09:00)
[2019-08-13] MEDS ORDERED: METOCLOPRAMIDE HCL 10MG TABLET PO SCH (09:00)
[2019-08-13] MEDS: MAGNESIUM/ALUMINUM HYDROXIDE/SIMETHICONE 30ML UDC PO PRN (09:30)
[2019-08-13 12:00] VITALS: BP 142/66
[2019-08-13] MEDS ORDERED: VANCOMYCIN 1500MG in DEXTROSE 5% WATER 250ML IV NR (15:00)
[2019-08-13 16:00] VITALS: BP 117/69
[2019-08-13 16:44] LABS: HEMATOCRIT 24.7 % (36.0-48.0); HEMOGLOBIN 7.8 g/dL (12.0-16.0); MEAN CORPUSCULAR HEMOGLOBIN 23.6 pg (28.0-32.0); PLATELET 261 x1000/uL (130-400); RED CELL DISTRIBUTION WIDTH 15.7 % (11.6-14.6)
[2019-08-13] MEDS: MONTELUKAST SODIUM 10MG TABLET PO SCH (17:00)
[2019-08-13 20:00] VITALS: BP 131/62
[2019-08-13] MEDS: ATORVASTATIN CALCIUM 10MG TABLET PO SCH (21:00)
[2019-08-14] VITALS: BP 126/62
[2019-08-14 03:44] VITALS: BP 128/68
[2019-08-14] MEDS: HYDRALAZINE HCL 50MG TABLET PO SCH ×3 (06:00→21:39)
[2019-08-14] MEDS: OMEPRAZOLE 20MG CAPSULE EXTENDED RELEASE PO SCH (06:55)
[2019-08-14] MEDS: BLOOD SUGAR DIAGNOSTIC STRIP TEST SCH ×4 (06:56→21:40)
[2019-08-14] MEDS: CALCIUM ACETATE 667MG CAPSULE PO SCH ×3 (07:40→17:40)
[2019-08-14] MEDS: INSULIN LISPRO 100 UNITS/ML SUBCUT SCH ×4 (07:40→21:00)
[2019-08-14 08:00] VITALS: BP 185/84
[2019-08-14] MEDS: HEPARIN 5000 UNITS/ML VIAL SUBCUT SCH ×2 (08:48→21:00)
[2019-08-14] MEDS: CLOPIDOGREL 75MG TABLET PO SCH (08:48)
[2019-08-14] MEDS: DOCUSATE SODIUM 100MG CAPSULE PO SCH ×2 (08:48→17:00)
[2019-08-14] MEDS: AMLODIPINE 5MG TABLET PO SCH ×2 (08:48→21:39)
[2019-08-14 12:00] VITALS: BP 174/75
[2019-08-14 16:00] VITALS: BP 158/77
[2019-08-14] MEDS ORDERED: VANCOMYCIN 1 G PREMIX 200 ML IV SCH (17:00)
[2019-08-14] MEDS: MONTELUKAST SODIUM 10MG TABLET PO SCH (17:00)
[2019-08-14] MEDS ORDERED: EPOETIN ALFA 10000UNITS/ML VIAL SUBCUT SCH (21:00)
[2019-08-14] MEDS: ATORVASTATIN CALCIUM 10MG TABLET PO SCH (21:00)
[2019-08-15 04:00] VITALS: BP 182/80
[2019-08-15] MEDS: OMEPRAZOLE 20MG CAPSULE EXTENDED RELEASE PO SCH (06:41)
[2019-08-15] MEDS: HYDRALAZINE HCL 50MG TABLET PO SCH ×2 (06:42→14:00)
[2019-08-15] MEDS: BLOOD SUGAR DIAGNOSTIC STRIP TEST SCH ×2 (06:42→12:10)
[2019-08-15] MEDS: INSULIN LISPRO 100 UNITS/ML SUBCUT SCH ×2 (06:42→14:50)
[2019-08-15 08:00] VITALS: BP 157/61
[2019-08-15] MEDS: HEPARIN 5000 UNITS/ML VIAL SUBCUT SCH ×2 (09:00→09:28)
[2019-08-15] MEDS: MAGNESIUM/ALUMINUM HYDROXIDE/SIMETHICONE 30ML UDC PO PRN (09:24)
[2019-08-15] MEDS: DOCUSATE SODIUM 100MG CAPSULE PO SCH (09:25)
[2019-08-15] MEDS: CLOPIDOGREL 75MG TABLET PO SCH (09:25)
[2019-08-15] MEDS: CALCIUM ACETATE 667MG CAPSULE PO SCH ×2 (09:25→12:40)
[2019-08-15] MEDS: AMLODIPINE 5MG TABLET PO SCH (09:34)
[2019-08-15 12:00] VITALS: BP 128/56
[2019-08-15] MEDS ORDERED: HYDRALAZINE 20MG/ML VIAL IV SCH (13:00)
[2019-08-15] MEDS ORDERED: VANCOMYCIN 1 G PREMIX 200 ML IV NR (15:00)
[2019-08-15 16:39] LABS: BASOPHILS % 0.8 % (0.0-2.0); EOSINOPHILS % 5.5 % (0.0-5.0); HEMATOCRIT. 27.4 % (36.0-48.0); HEMOGLOBIN. 8.6 g/dL (12.0-16.0); LYMPHOCYTES % 38.5 % (20.0-50.0); MEAN CORPUSCULAR HEMOGLOBIN 23.6 pg (28.0-32.0); MEAN CORPUSCULAR VOLUME 74.9 fL (81.0-99.0); MONOCYTES % 10.8 % (2.0-8.0); NEUTROPHILS % 44.4 % (40.0-76.0); PLATELET 210 x1000/uL (130-400); RED BLOOD CELL COUNT 3.65 mill/uL (4.2-5.4); RED CELL DISTRIBUTION WIDTH 15.7 % (11.6-14.6)
== END 2019-08-15 17:31 | DRG 425 ==
LOC: ER 14:16 → 8WST 18:20 → EDBEDREQ 18:25 → EDBEDREQTM 18:25 → ENRESERV 20:32 → 8WST 22:50
PROVIDERS: ADMIT Internal Medicine; ATTEND Internal Medicine
PROC: 5A1D70Z Performance of Urinary Filtration, Intermittent, Less than 6 Hours Per Day (ICD-10-PCS; principal; 2019-08-12)
PROC: 5A1D70Z Performance of Urinary Filtration, Intermittent, Less than 6 Hours Per Day (ICD-10-PCS; 2019-08-14)
DX: E87.5 Hyperkalemia (principal); I13.2 Hypertensive heart and chronic kidney disease with heart failure and with stage 5 chronic kidney disease, or end stage renal disease; E44.0 Moderate protein-calorie malnutrition; E11.22 Type 2 diabetes mellitus with diabetic chronic kidney disease; E11.319 Type 2 diabetes mellitus with unspecified diabetic retinopathy without macular edema; E11.9 Type 2 diabetes mellitus without complications; D63.8 Anemia in other chronic diseases classified elsewhere; E11.51 Type 2 diabetes mellitus with diabetic peripheral angiopathy without gangrene; I50.9 Heart failure, unspecified; I11.0 Hypertensive heart disease with heart failure; I12.0 Hypertensive chronic kidney disease with stage 5 chronic kidney disease or end stage renal disease; J44.9 Chronic obstructive pulmonary disease, unspecified; N18.6 End stage renal disease; Z99.2 Dependence on renal dialysis; Z91.15 Patient's noncompliance with renal dialysis; Z88.8 Allergy status to other drugs, medicaments and biological substances; Z88.6 Allergy status to analgesic agent; Z88.0 Allergy status to penicillin; Z91.013 Allergy to seafood; Z68.24 Body mass index [BMI] 24.0-24.9, adult; E78.5 Hyperlipidemia, unspecified; H54.7 Unspecified visual loss; I16.0 Hypertensive urgency; Z89.511 Acquired absence of right leg below knee; Z91.19 Patient's noncompliance with other medical treatment and regimen
CPT/HCPCS: 36415; 71045; 80048; 82962; 83036; 83880; 84484; 85027; 93005; 93970; 94644; 99291; J0461; J0885; J1644; J1815; J1940; J3370; J3490; J7060; J7611